=== PATIENT | female | born 1975 | race Caucasian/White ===

== ENCOUNTER 2024-01-26 22:58 | Emergency (ER) | payer BC, SELFPAY ==
[2024-01-26 23:06] VITALS: BP 141/105; PULSE 124; RESP 16; TEMP 36.9; O2SAT 96; BMI 43.9
[2024-01-26 23:16] VITALS: BP 141/105; PULSE 124; RESP 16; TEMP 36.9; O2SAT 96
--- NOTE | 2024-01-26 23:20 | CRLHL7_ITS ---
For Patients: As a result of the Century Cures Act, medical imaging exams and procedure reports are released immediately into your electronic medical record. You may view this report before your referring provider. If you have questions, please contact your health care provider. INDICATION: Fever, recent left breast implant removal with drain in place (01/18/2024). TECHNIQUE: CT chest was acquired with 75 cc Omnipaque 350 IV contrast. COMPARISON: None. FINDINGS: Lungs and pleura: No suspicious nodules or infiltrates. Very mild subpleural reticulation along the anterior left upper lobe. No pleural effusions, pleural thickening, or pneumothorax. The central airways are clear. Heart and vasculature: Heart size is normal. Thoracic aorta and pulmonary artery are normal in caliber. Lymph nodes/mediastinum: No mediastinal, hilar, or axillary adenopathy. Chest wall: Inflammatory stranding and architectural distortion of the left breast with a surgical drain in the operative bed. No focal fluid collection identified. Upper abdomen: No acute or significant findings. Bones: Unremarkable for age. IMPRESSION: 1. Inflammatory stranding and architectural distortion of the left breast with a surgical drain in the operative bed. The inflammatory stranding is likely postoperative change; however, cellulitis cannot be entirely excluded on this exam. No evidence for an abscess. Please note that all CT scans at this facility use dose modulation, iterative reconstruction, and/or weight-based dosing when appropriate to reduce radiation dose to as low as reasonably achievable. Dictated by Omi Donaldson MD @ 01/27/2024 12:56:09 AM (Electronically Signed)
--- NOTE | 2024-01-26 23:28 | ED.FEVER ---
HPI - Fever General Date Seen: 01/26/24 <Les Carrington DO - Last Filed: 01/26/24 23:50> Chief Complaint: Fever <Les Carrington DO - Last Filed: 01/26/24 23:50> Stated Complaint: fever <Les Carrington DO - Last Filed: 01/26/24 23:50> Time Seen by Provider: 01/26/24 23:20 <Les Carrington DO - Last Filed: 01/26/24 23:50> Source: patient <Les Carrington DO - Last Filed: 01/26/24 23:50> Mode of arrival: ambulatory <Les Carrington DO - Last Filed: 01/26/24 23:50> Limitations: no limitations <Les Carrington DO - Last Filed: 01/26/24 23:50> History of Present Illness HPI Narrative: Patient is a 48-year-old female with a history of breast cancer who recently finished chemotherapy and just had a breast implant removal due to contractures on 01/18/2024. She presents today for a fever. She states she 1st had a fever 4 days ago and it went away that day. She then had another fever today of 101.4. She then called the triage line recommended she come in for evaluation. She took ibuprofen for the fever. She also took a [place] that she has been prescribed for her left breast pain. She states the left breast has been painful since Tuesday which she states is with the local anesthetic seem to wear off. Pain has been managed with the Sandborn. She does have a drain coming from the left breast that has not had any changes in output. States she checked her temperature because she was feeling intermittent the warm and chilled. She also feels slightly lightheaded and dizzy. It is hard for described exactly with the sensation was but does states it is pretty mild. Has been going on for the past few days. Has not had any diarrhea, constipation, shortness of breath, chest pain, vision changes, weakness, numbness, abdominal pain, dysuria. Denies any other medical problems at this time. Has not noticed any drainage from the surgical sites. <Les Carrington - Last Filed: 01/26/24 23:50> Related Data Home Medications: Home Medications ?Medication ?Instructions ?Recorded ?Confirmed abemaciclib 150 mg tablet 150 mg PO BID 01/26/24 01/26/24 (Verzenio) anastrozole 1 mg tablet 1 mg PO DAILY 01/26/24 01/26/24 gabapentin 300 mg capsule 900 mg PO QHS 01/26/24 01/26/24 melatonin 10 mg capsule 10 mg PO HS PRN 01/26/24 01/26/24 metformin 500 mg tablet,extended 500 mg PO DAILY 01/26/24 01/26/24 release 24 hr montelukast 10 mg tablet 10 mg PO DAILY 01/26/24 01/26/24 omeprazole 20 mg capsule,delayed 20 mg PO DAILY 01/26/24 01/26/24 release semaglutide 1 mg/dose (4 mg/3 mL) 1 mg subcut QWEEK 01/26/24 01/26/24 subcutaneous pen injector (Ozempic) <Les Carrington DO - Last Filed: 01/26/24 23:50> Allergies/Adverse Reactions: Allergies Allergy/AdvReac Type Severity Reaction Status Date / Time cantaloupe AdvReac Intermediate hives Verified 01/26/24 23:10 codeine AdvReac itching Verified 01/26/24 23:10 <Les Carrington DO - Last Filed: 01/26/24 23:50> Review of Systems Status of ROS Reports: 10 or more systems reviewed and unremarkable except as noted in History and below <Les Carrington DO - Last Filed: 01/26/24 23:50> [facility] Medical History: Medical History (Updated 01/27/24 @ 00:01 by Mainor [place]) Insomnia ?G47.00 - Insomnia, unspecified (ICD-10) Breast cancer ?C50.919 - Malignant neoplasm of unspecified site of unspecified female breast (ICD-10) <Les Carrington DO - Last Filed: 01/26/24 23:50> Surgical History: Surgical History (Updated 01/26/24 @ 23:16 by Patricia Arzate RN) H/O mastectomy ?Z90.10 - Acquired absence of unspecified breast and nipple (ICD-10) <Les Carrington DO - Last Filed: 01/26/24 23:50> Social History: Social History Smoking Status: Never smoker How often do you have a drink containing alcohol: never AUDIT-C Alcohol total score: 0 Non-prescribed substance use: denies use <Les Carrington DO - Last Filed: 01/26/24 23:50> Exam Narrative Exam Narrative: Const: Well-nourished, Well-developed, in mild distress Eyes: PERRL, no conjunctival injection, and symmetrical lids HENT: Atraumatic external nose and ears. Moist mucous membranes. Neck: Symmetric, trachea midline, No thyromegaly. CVS: RRR, No murmurs or gallops. Peripheral pulses 2+ and equal in all extremities RESP: Unlabored respiratory effort. Clear to auscultation bilaterally. GI: Nontender/Nondistended, No rebound or guarding. MSK:Extremities w/o deformity, Normal Active ROM Skin: Warm, Dry. Left breast shows contractures and well-healing surgical sites. Overall the left breast is generally to warmer compared to the right. MARIANA drain intact. No drainage noted from surgical site Neuro: Normal Muscle tone, No focal neurological deficits. Psych: Awake, Alert, & Oriented x3. Appropriate mood and affect. <Les Carrington DO - Last Filed: 01/26/24 23:50> Const Vital Signs, click to edit/add: Vital Signs - 24 hr 01/26/24 23:06 01/26/24 23:16 Temperature 98.5 F 98.5 F Pulse Rate [Pulse Oximeter] 124 H 124 H Respiratory Rate 16 16 Blood Pressure [Left Arm] 141/105 H Blood Pressure [Right Upper Arm] 141/105 H Pulse Oximetry 96 96 Oxygen Delivery Method Room Air Room Air <Les Carrington DO - Last Filed: 01/26/24 23:50> Vital Signs - 24 hr 01/26/24 23:06 01/26/24 23:16 Temperature 98.5 F 98.5 F Pulse Rate [Pulse Oximeter] 124 H 124 H Respiratory Rate 16 16 Blood Pressure [Left Arm] 141/105 H Blood Pressure [Right Upper Arm] 141/105 H Pulse Oximetry 96 96 Oxygen Delivery Method Room Air Room Air <Alban Rodriguez MD - Last Filed: 01/27/24 01:03> Course Vital Signs Vital signs: Initial Vital Signs Temperature 98.5 F 10/17/24 23:06 Temperature Source Oral 01/26/24 23:06 Pulse Rate 124 H 01/26/24 23:06 Respiratory Rate 16 01/26/24 23:06 Blood Pressure 141/105 H 01/26/24 23:06 Blood Pressure Mean 117 H 01/26/24 23:06 Blood Pressure Position Sitting 01/26/24 23:06 Pulse Oximetry 96 01/26/24 23:06 Oxygen Delivery Method Room Air 01/26/24 23:06 Vital Signs Temperature 98.5 F 01/26/24 23:06 Pulse Rate 124 H 01/26/24 23:06 Respiratory Rate 16 01/26/24 23:06 Blood Pressure 141/105 H 01/26/24 23:06 Pulse Oximetry 96 01/26/24 23:06 Oxygen Delivery Method Room Air 01/26/24 23:06 Temperature 98.5 F 01/26/24 23:16 Pulse Rate 124 H 01/26/24 23:16 Respiratory Rate 16 01/26/24 23:16 Blood Pressure 141/105 H 01/26/24 23:16 Pulse Oximetry 96 01/26/24 23:16 Oxygen Delivery Method Room Air 01/26/24 23:16 <Les Carrington, DO - Last Filed: 01/26/24 23:50> Initial Vital Signs Temperature 98.5 F 01/26/24 23:06 Temperature Source Oral 01/26/24 23:06 Pulse Rate 124 H 01/26/24 23:06 Respiratory Rate 16 01/26/24 23:06 Blood Pressure 141/105 H 01/26/24 23:06 Blood Pressure Mean 117 H 01/26/24 23:06 Blood Pressure Position Sitting 01/26/24 23:06 Pulse Oximetry 96 01/26/24 23:06 Oxygen Delivery Method Room Air 01/26/24 23:06 Vital Signs Temperature 98.5 F 01/26/24 23:06 Pulse Rate 124 H 01/26/24 23:06 Respiratory Rate 16 01/26/24 23:06 Blood Pressure 141/105 H 01/26/24 23:06 Pulse Oximetry 96 01/26/24 23:06 Oxygen Delivery Method Room Air 01/26/24 23:06 Temperature 98.5 F 01/26/24 23:16 Pulse Rate 124 H 01/26/24 23:16 Respiratory Rate 16 01/26/24 23:16 Blood Pressure 141/105 H 01/26/24 23:16 Pulse Oximetry 96 01/26/24 23:16 Oxygen Delivery Method Room Air 01/26/24 23:16 <Alban Rodriguez MD - Last Filed: 01/27/24 01:03> MDM - Fever MDM Narrative Medical decision making narrative: Patient is a 48-year-old female presenting to the emergency department for a fever. For postsurgical fevers seems unlikely this is a DC considering she is not having any chest pain but I will do a EKG and troponin for better evaluation. Will do urinalysis to look for signs of a UTI. Seems unlikely to be related to a PE concerned she is having no associated shortness of breath and no lower extremity swelling so I am more inclined to order CT scan with IV contrast to evaluate left breast for any signs of deep abscess instead of doing a CTA. This will also look for signs of pneumonia. She is tachycardic here and had a fever at home so the so will order a septic workup including CBC, BMP, lactate. Will also order a COVID/flu/RSV test as she has been recently hospitalized. CBC shows no acute concerning abnormalities. Urinalysis shows no signs of UTI. Lactate within normal limits. Rest of her lab work and CT are pending at the abnormalities shift. <Les Carrington DO - Last Filed: 01/26/24 23:50> Patient is a 48-year-old female presenting to the emergency department for a fever. For postsurgical fevers seems unlikely this is a DC considering she is not having any chest pain but I will do a EKG and troponin for better evaluation. Will do urinalysis to look for signs of a UTI. Seems unlikely to be related to a PE concerned she is having no associated shortness of breath and no lower extremity swelling so I am more inclined to order CT scan with IV contrast to evaluate left breast for any signs of deep abscess instead of doing a CTA. This will also look for signs of pneumonia. She is tachycardic here and had a fever at home so the so will order a septic workup including CBC, BMP, lactate. Will also order a COVID/flu/RSV test as she has been recently hospitalized. CBC shows no acute concerning abnormalities. Urinalysis shows no signs of UTI. Lactate within normal limits. Rest of her lab work and CT are pending at the abnormalities shift. CT shows only postoperative changes. I did review her case thoroughly and collected a set of blood cultures as a precaution. This time will let her go home symptomatic treatment as her temperature and pulse have normalized. I do not believe further antibiotics or further inpatient workup would be beneficial <Alban Rodriguez MD - Last Filed: 01/27/24 01:03> Lab Data Labs: Lab Results 01/26/24 01/26/24 01/26/24 Range/Units 23:22 23:28 23:30 WBC 6.40 (4.50-11.00) K/uL RBC 3.82 L (4.00-5.20) m/uL Hgb 12.6 (12.0-16.0) gm/dL Hct 38.0 (33.0-51.0) % MCV 100 (80-100) fL MCH 33 (26-34) pg MCHC 33 (32-36) gm/dL RDW Coeff of Velasquez 12.8 (11.5-15.5) % Plt Count 175 (140-440) K/uL Neut % (Auto) 75.0 H (42.0-72.0) % Lymph % (Auto) 18.4 L (20-44) % Banner % (Auto) 4.4 (0.0-11.0) % Eos % (Auto) 1.1 (0.0-7.0) % Baso % (Auto) 0.3 (0.0-3.0) % Neut # (Auto) 4.80 (1.7-7.0) K/uL Lymph # (Auto) 1.20 (0.90-2.90) K/uL Banner # (Auto) 0.30 (0.00-0.90) K/UL Eos # (Auto) 0.07 (0.00-0.50) K/uL Baso # (Auto) 0.02 (0.00-0.30) K/uL Abs Immat Gran (auto) 0.05 (0.00-0.30) K/uL Imm/Tot Granulo (auto) 0.8 % Sodium 140 (135-149) mmol/L Potassium 3.8 (3.6-5.1) mmol/L Chloride 100 (96-114) mmol/L Carbon Dioxide 22 (20-32) mmol/L Anion Gap 18 H (7-15) mEq/L BUN 20 (5-24) mg/dL Creatinine 1.1 (0.5-1.5) mg/dL Estimated Creat Clear 53.42 Estimated GFR 62 ml/min Glucose 100 (60-115) mg/dL Lactate 0.9 (0.5-1.9) mmol/L Calcium 9.0 (8.4-10.6) mg/dL Urine Color Yellow (Yellow) Urine Appearance Clear (Clear) Urine pH 6.5 (5.0-8.5) Ur Specific [place] 1.010 (1.000-1.030) Urine Protein Negative (Negative) Urine Glucose (UA) Negative (Negative) Urine Ketones Negative (Negative) Urine Blood Negative (Negative) Urine Nitrite Negative (Negative) Urine Bilirubin Negative (Negative) Urine Urobilinogen 0.2 (0.2-1.0) Ur Leukocyte Esterase Negative (Negative) Urine RBC 0-2 (0-2) Urine WBC 0-2 (0-5) Ur Squamous Epith Cells None (None-Few) Urine Bacteria None (None) SARS-CoV-2 (PCR) Negative SARS-CoV-2 (Negative) Influenza Type A (PCR) Negative PCR FLU A (Negative) Influenza Type B (PCR) Negative PCR FLU B (Negative) RSV (PCR) Negative PCR RSV (Negative) POC Creatinine 0.9 (0.6-1.3) mg/dl POC Troponin I 0.01 (0.01-0.04) ng/ml <Les Carrington, DO - Last Filed: 01/26/24 23:50> Lab Results 01/26/24 01/26/24 01/26/24 Range/Units 23:22 23:28 23:30 WBC 6.40 (4.50-11.00) K/uL RBC 3.82 L (4.00-5.20) m/uL Hgb 12.6 (12.0-16.0) gm/dL Hct 38.0 (33.0-51.0) % MCV 100 (80-100) fL MCH 33 (26-34) pg MCHC 33 (32-36) gm/dL RDW Coeff of Velasquez 12.8 (11.5-15.5) % Plt Count 175 (140-440) K/uL Neut % (Auto) 75.0 H (42.0-72.0) % Lymph % (Auto) 18.4 L (20-44) % Banner % (Auto) 4.4 (0.0-11.0) % Eos % (Auto) 1.1 (0.0-7.0) % Baso % (Auto) 0.3 (0.0-3.0) % Neut # (Auto) 4.80 (1.7-7.0) K/uL Lymph # (Auto) 1.20 (0.90-2.90) K/uL Banner # (Auto) 0.30 (0.00-0.90) K/UL Eos # (Auto) 0.07 (0.00-0.50) K/uL Baso # (Auto) 0.02 (0.00-0.30) K/uL Abs Immat Gran (auto) 0.05 (0.00-0.30) K/uL Imm/Tot Granulo (auto) 0.8 % Sodium 140 (135-149) mmol/L Potassium 3.8 (3.6-5.1) mmol/L Chloride 100 (96-114) mmol/L Carbon Dioxide 22 (20-32) mmol/L Anion Gap 18 H (7-15) mEq/L BUN 20 (5-24) mg/dL Creatinine 1.1 (0.5-1.5) mg/dL Estimated Creat Clear 53.42 Estimated GFR 62 ml/min Glucose 100 (60-115) mg/dL Lactate 0.9 (0.5-1.9) mmol/L Calcium 9.0 (8.4-10.6) mg/dL Urine Color Yellow (Yellow) Urine Appearance Clear (Clear) Urine pH 6.5 (5.0-8.5) Ur Specific [place] 1.010 (1.000-1.030) Urine Protein Negative (Negative) Urine Glucose (UA) Negative (Negative) Urine Ketones Negative (Negative) Urine Blood Negative (Negative) Urine Nitrite Negative (Negative) Urine Bilirubin Negative (Negative) Urine Urobilinogen 0.2 (0.2-1.0) Ur Leukocyte Esterase Negative (Negative) Urine RBC 0-2 (0-2) Urine WBC 0-2 (0-5) Ur Squamous Epith Cells None (None-Few) Urine Bacteria None (None) SARS-CoV-2 (PCR) Negative SARS-CoV-2 (Negative) Influenza Type A (PCR) Negative PCR FLU A (Negative) Influenza Type B (PCR) Negative PCR FLU B (Negative) RSV (PCR) Negative PCR RSV (Negative) POC Creatinine 0.9 (0.6-1.3) mg/dl POC Troponin I 0.01 (0.01-0.04) ng/ml <Alban Rodriguez MD - Last Filed: 01/27/24 01:03> ECG Data Attestation: I personally reviewed and interpreted this ECG as follows: <Les Carrington DO - Last Filed: 01/26/24 23:50> Prior ECG tracings: not available for review <Les Carrington DO - Last Filed: 01/26/24 23:50> Interpretation: Normal sinus rhythm with a rate 96 beats per minute, normal intervals, normal axis, no ST or T-wave abnormalities. <Les Carrington DO - Last Filed: 01/26/24 23:50> Discharge Plan Discharge Clinical Impression: Fever postop <Les Carrington DO - Last Filed: 01/26/24 23:50> Patient Disposition: Home, Self-Care <Les Carrington DO - Last Filed: 01/26/24 23:50> Condition: Stable <Les Carrington DO - Last Filed: 01/26/24 23:50> Instructions: Fever in Adults (ED) <Les Carrington DO - Last Filed: 01/26/24 23:50> Additional Instructions: Continue take Tylenol ibuprofen for her fevers. If they persist follow-up with your surgeon. Return to emergency department for new or worsening symptom <Les Carrington DO - Last Filed: 01/26/24 23:50> Activity Level: No Restrictions <Les Carrington DO - Last Filed: 01/26/24 23:50> No Restrictions <Alban Rodriguez MD - Last Filed: 01/27/24 01:03> Discharge Diet: Regular <Les Carrington DO - Last Filed: 01/26/24 23:50> Regular <Alban Rodriguez MD - Last Filed: 01/27/24 01:03> Prescriptions: No Action anastrozole 1 mg tablet 1 mg PO DAILY gabapentin 300 mg capsule 900 mg PO QHS melatonin 10 mg capsule 10 mg PO HS PRN metformin 500 mg tablet extended release 24 hr 500 mg PO DAILY montelukast 10 mg tablet 10 mg PO DAILY omeprazole 20 mg capsule,delayed release(DR/EC) 20 mg PO DAILY Ozempic 1 mg/dose (4 mg/3 mL) pen injector 1 mg subcut QWEEK Verzenio 150 mg tablet 150 mg PO BID <Les Carrington DO - Last Filed: 01/26/24 23:50> [facility] <Les Carrington DO - Last Filed: 01/26/24 23:50>
[2024-01-26 23:37] LABS: Creatinine, Point-of-Care* 0.9 mg/dl (0.6-1.3)
[2024-01-26 23:39] LABS: Lactate Sepsis w/Reflex* 0.9 mmol/L (0.5-1.9)
[2024-01-26 23:44] LABS: Basophils Absolute Auto 0.02 K/uL (0.00-0.30); Basophils Percent Auto 0.3 % (0.0-3.0); Eosinophils Absolute Auto 0.07 K/uL (0.00-0.50); Eosinophils Percent Auto 1.1 % (0.0-7.0); Hemoglobin* 12.6 gm/dL (12.0-16.0); Immature Granulocytes Abs Auto 0.05 K/uL (0.00-0.30); Immature Granulocytes Pct Auto 0.8 %; Lymphocytes Percent Auto 18.4 % (20-44); Mean Corpuscular HGB Conc 33 gm/dL (32-36); Mean Corpuscular Hemoglobin 33 pg (26-34); Mean Corpuscular Volume 100 fL (80-100); Monocytes Percent Auto 4.4 % (0.0-11.0); Platelet Count* 175 K/uL (140-440); RDW Coefficient of Variation % 12.8 % (11.5-15.5); Red Blood Count 3.82 m/uL (4.00-5.20)
[2024-01-26 23:46] LABS: Slide Review Reflex No
[2024-01-26 23:47] LABS: Appearance Urine Clear (Clear); Bilirubin Urine Negative (Negative); Blood Urine Negative (Negative); Color Urine Yellow (Yellow); Glucose Urine Negative (Negative); Ketones Urine Negative (Negative); Leukocyte Esterase Urine Negative (Negative); Nitrite Urine Negative (Negative); Protein Urine Negative (Negative); Urobilinogen Urine 0.2 (0.2-1.0); pH Urine 6.5 (5.0-8.5)
[2024-01-26 23:48] LABS: RBC Urine 0-2 (0-2); WBC Urine 0-2 (0-5)
[2024-01-26 23:54] LABS: Troponin, Point-of-Care* 0.01 ng/ml (0.01-0.04)
[2024-01-27 00:06] LABS: PCR FLU A Negative PCR FLU A (Negative); PCR FLU B Negative PCR FLU B (Negative); PCR RSV Negative PCR RSV (Negative); SARS PCR* Negative SARS-CoV-2 (Negative)
--- OUTSIDE RECORDS SUMMARY | 2024-01-27 00:14 | XMS_ITS | Encounter Summary ---
Author Organization [employer] Address [address] [place] [address] Care Team Providers Care Research Program Assistant Name Role Phone Danna Borja PA-C Primary Care Provider [phone] Encounter Details Date Type Department Care Team (Late st Contact Info) Description 01/23/2024 4:00 PM CDT Office Visit [facility] [address], [address] [place], [place] [id number] Ruby Holland, KRISTAL, PROVIDER ENROLLMENT SPECIALIST [address] [place] [address] Follow-up examination following surgery (Primary Dx) Social History Tobacco Use Types Packs/Day Years Used Date Smoking Tobacco: Former Cigarettes Q uit: 04/11/2018 Smokeless Tobacco: Never Alcohol Use Standard Drinks/Week Comments Not Currently 0 (1 standard drink = 0.6 oz pur e alcohol) Sex and Gender Information Value Date Recorded Sex Assigned at Not on file Gender Identity Not on file Sexual Orientation Not on file documented as of this encounter Patient Instructions * Patient Instructions* Ruby Holland APRN, PROVIDER ENROLLMENT SPECIALIST - 01/23/2024 4:00 PM CDT Instructions: -No lifting/ pushing/ pulling >8lbs, no reaching or lifting overhead x4 weeks post-op with left arm -Continue compression at all times x 4 weeks post-op -Ok to shower, no submerging (baths/ pools) until well healed -Ibuprofen 400mg to 600mg every 8 hours as needed or Tylenol 500mg to 650mg every 6 hours as needed -Leave clear tape over incisions until 2-3 weeks post-op. Once removed, ok to start gentle lotion (Vanicream, Eucerin, CeraVe), Aquaphor, or vitamin E to scars. At 4-6 weeks post-op, you may start using silicone tape or gel daily -Monitor for swelling, redness, pain, fevers documented in this encounter Progress Notes * Ruby Holland APRN, CNP - 01/23/2024 4:00 PM CDT Plastic Surgery Clinic Assessment/ Plan: The patient is a 48 y.o. old female with a PMH of left breast cancer who previously underwent left mastectomy and implant-based reconstruction. She developed capsular contracture ofleft breast and is now s/p removal of implant with capsulectomy by Dr. Mitchell 01/18/2024. She is healing appropriately without complication, drain remains. -No lifting/ pushing/ pulling >8lbs, no reaching or lifting overhead x4 weeks post-op with left arm -Continue compression at all times x 4 weeks post-op Follow-up: ?? Return to clinic: 2-3 weeks, call when drain meets criteria Ruby Holland APRN-KAROL HPI: The patient is a 48 y.o. old female with significant PMH of left breast cancer who previously underwent left mastectomy by Dr. Lyons and immediate reconstruction with tissue grinding room inspector by Dr. Mitchell 05/19/2021. She completed xrt to left in 01/2022. She underwent right breast reduction andleft stage 2, placement of implant, and fat grafting by Dr. Mitchell 07/21/2022. She developed capsular contracture of left breast and is now s/p removal of implant with capsulectomy by Dr. Mitchell 01/18/2024. She noted relief of left breast discomfort. Left breast implant: [id number] Left drain: 25+cc/24h x2d ROS: Review of Systems CONSTITUTIONAL: Negative SKIN: No rash/ drainage Physical Exam: Gen: WDWN female in NAD. Awake and cooperative Resp: effort nl Breast: Right surgically reduced [place] breast. Left breast surgically absent, skin with radiation changes. Incision covered with prineo, CDI. No erythema or fluid wave. Drain with serosanguinous output documented in this encounter Plan of Treatment Not on file documented as of this encounter Visit Diagnoses Diagnosis Follow-up examination following surgery- Primary Follow-up examination, following unspecified surgery documented in this encounter Care Teams Research Program Assistant Relationship Specialty Start Date End Date Danna Borja PA-C [address] [place] [address] PCP - General Physician Ambulance Attendant 01/18/24 documented as of this encounter
--- OUTSIDE RECORDS SUMMARY | 2024-01-27 00:14 | XMS_ITS | Encounter Summary ---
Author Organization [facility] Address [address] [place] [address] Care Team Providers Care Eddy Current Inspector Name Role Phone Danna Borja PA-C Primary Care Provider [phone] Reason for Visit * Auth/Cert Specialty Diagnoses / Procedures Referred By Alonso t Referred To Contact Diagnoses Personal history of malignant neoplasm of breast Procedures removal of left breast implant - NOT REPLACING Referral ID Status Reason Start Date Expiration Date Visits Re quested Visits Authorized [id number] 1 1 Encounter Details Date Type Department Care Team (Late st Contact Info) Description 01/18/2024 9:21 AM CDT Anesthesia Event [facility] [address] [place] [address] [phone] Courtney Mock MD [address] [place] [address] [phone] Frida Jacques Anesthesia Record Procedure Summary Procedure Name Responsible Anesthesiologist Anesthesia Start Time Anesthesia Stop Time removal of left breast implant - NOT REPLACING (Left: Breast) Courtney Mock MD 01/18/24 0921 01/18/24 1029 Events Date Time Event Comment 01/18/2024 0902 0921 An Start 0921 An Start Data 0931 MD/DO Present 0931 An Induction 0935 An Intubation 1022 An Emergence 1024 An Extubation Purposeful mov ement with spontaneous respirations and adequate air exchange. Suctioned and ETT removed. Transferred with oxygen to recovery. 1024 Nasal Canula/O2 Mask 1027 an stop data 1029 Care Handoff Note I discusse d with the receiving nurse and we: 1) Identified the patient, medina family member(s) or patient surrogate 2) Identified the responsible practitioner 3) Reviewed the pertinent medical history 4) Discussed the surgical/procedure course 5) Reviewed intra-op anesthesia management and issues during anesthesia 6) Set expectations for the post-procedure period 7) Allowed opportunity for questions and acknowledgement of understanding of report Electronically signed by Emma Lynn APRN, QUALITY CONTROL LEAD 1029 An Stop Care transferre d. Meds Name Total propofol 10 mg/mL for procedural sedatio n (aka diPRIvan) 240 mg propofol 1000 mg (aka diPRIvan) injectio n 429.4 mg dexmedeTOMIDine (PRECEDEX) 2 00 mcg in sodium chloride 50 mL (4 mcg/mL) premade infusion 8 mcg midazolam 2 mg/2 mL injection (aka VERSE D) 2 mg fentaNYL injection (aka SUBLIMAZE) 2 mL lidocaine 2% PF injection aka (XYLOCAINE ) 70 mg succinylcholine injection (aka QUELICIN) 120 mg ondansetron injection (aka ZOFRAN) 4 mg dexamethasone 4 mg/mL injection (aka DEC ADRON) 4 mg HYDROmorphone 1 mg/mL injection (aka DIL AUDID) 0.5 mg ceFAZolin-SWFI 2 g/20 mL IV syringe 2 g lactated ringers infusion 500 mL * Agents Name O2 N2O Air * Blood No blood administrations on file. Lines, Drains, and Airways Type Details Placement Removal Drain 01/18/24; 1; Left; Breast; MARIANA/Bulb; Yes; 15 Fr.; New 01/18/24 0000 by Helena Hope RN Incision/Surgical Site 01/18/24; 0948; # 1; Breast; Left 01/18/24 0948 by Helena Hope, MEGAN Peripheral IV Placement Date: 01/18/24; Placement Time: 854; Pre-existing: No; Inserted by?: RN; Size (Gauge): 20 G; Orientation: Right; Site Prep: ChloraPrep; Local Anesthetic: None; Insertion attempts: 1; Blood draw with insertion?: yes; Patient Tolerance: Tolerated well; Removal Date: 01/19/24; Removal Time: 07; Removal Reason: No longer needed; Catheter Tip: Intact 01/18/24 0855 by Coirn Walsh RN 01/19/24 0738 by Lorna Vargas RN ETT Placement Date: 01/18/24; Placement Time: 0935; Placed By: SHAWNEE; Induction Type: Pre-O2, IV, RSI; Masking: Easy; ETT Type: ETT; Orientation: Right; Size (mm): 7.0; Depth Secured (cm): 22 cm; Cuffed: Cuffed; Intubation Method: DL; Cormack_Lehane Glottic Grade: Grade 1; Glottic View: Cords Open, Cords Clear; Blade: MAC; Blade Size: 3; Insertion attempts: 1; Difficulty: Easy; Adjunct Equipment: Stylet; Placement Verification: auscultation, BBSE, Positive EtCO2; Teeth and Lips Unchanged: Unchanged; Emergence: Adequate air exchange, Spontaneous respirations; Suctioned: Oropharnyx; Removal Date: 01/18/24; Removal Time: 1024; Extubation By: SHAWNEE; Transferred with Oxygen: Yes 01/18/24 0935 by Frida Jacques 01/18/24 1024 by Frida Jacques documented in this encounter Social History Tobacco Use Types Packs/Day Years [...] on file documented as of this encounter Miscellaneous Notes * Anesthesia Postprocedure Evaluation - Courtney Mock MD - 01/18/2024 12:24 PM CDT [facility] Anesthesia Post-op Note Patient: Katalina Tucker Post-Op Diagnosis: Pre-Op Diagnosis Codes: * Personal history of malignant neoplasm of breast [Z85.3] Procedure Performed: Procedure(s): Left - removal of left breast implant - NOT REPLACING - Wound Class: 1 CLEAN Anesthesia Type: General Post-op vital signs: Vitals Value Taken Time BP 126/82 01/18/24 1200 Temp 96.9 ??F (36.1 ??C) 01/18/24 1200 Pulse 77 01/18/24 1206 Resp 10 01/18/24 1205 SpO2 100 % 01/18/24 1206 Vitals shown include unfiled device data. Pain Score: Preferred Pain Scale: number (Numeric Rating Pain Scale) (0-10) Pain Rating: Rest: 4 (0-10) Pain Rating: Activity: 6 Post-op assessment: Patient location: PACU Airway Status: Patent Cardiovascular function: Satisfactory Hydration status: Satisfactory PONV: None Level of Consciousness: Awake Fully Participates Postop Assessment: Patient tolerated procedure well. Electronically signed by: Courtney Hurt MD 01/18/2024 12:24 PM * Anesthesia Preprocedure Evaluation - Courtney Mock MD - 01/18/2024 8:28 AM CDT [facility] Anesthesia Pre-op Evaluation Procedure: removal of left breast implant - NOT REPLACING, Left HPI: 48 y.o. old female. Pre-Op Diagnosis Codes: * Personal history of malignant neoplasm of breast [Z85.3] Allergies Allergen Reactions Codeine Itching Any medication containing codeine causes patient to itch History reviewed. No pertinent past medical history. 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 No pertinent surgical history. Outpatient Medications as of 01/18/2024 Medication Sig anastrozole (ARIMIDEX) 1 MG tablet Take 1 Tablet (1 mg) by mouth daily. gabapentin (NEURONTIN) 300 MG capsule Take 3 Capsules (900 mg) by mouth daily at bedtime. metFORMIN XR (GLUCOPHAGE XR) 500 MG 24 hour release tablet Take 1 Tablet (500 mg) by mouth every evening with a meal. montelukast (SINGULAIR) 10 MG tablet TAKE 1 TABLET(10 MG) BY MOUTH EVERY EVENING omeprazole (PRILOSEC) 20 MG capsule Take 1 Capsule (20 mg) by mouth. VERZENIO 150 MG TABS Take by mouth two times a day. Facility-Administered Medications as of 01/18/2024 Medication Dose Route Frequency dimenhyDRINATE (DRAMAMINE) tablet 50 mg 50 mg Oral ONCE PRN fentaNYL (SUBLIMAZE) injection 50-100 mcg 50-100 mcg Intravenous Q15MIN PRN lactated ringers infusion 1,000 mL Intravenous Continuous lidocaine PF (XYLOCAINE) 1 % injection 0.1-1 mL 0.1-1 mL Injection ONCE PRN midazolam (VERSED) injection 1 mg 1 mg Intravenous Q5MIN PRN sodium chloride 0.9% injection 3 mL 3 mL Intravenous PRN with procedures Labs: Lab Results Component Value Date/Time CREATININE 0.85 05/13/2022 03:23 PM No results found for: WBC, HGB, HCT, PLTS No results found for: INR Blood Bank: No results found for: ABO, ABSCR EKG: No results found for this or any previous visit. Physical Exam: BP (!) 135/99 Pulse 81 Temp (!) 96.6 ??F (35.9 ??C) (Temporal Artery) SpO2 98% Assessment/Plan: Review of Systems Patient has GERD. GERD controlled with medication (Ozempic held). Patient is not a current smoker. Patient is a former smoker. The patient denies alcohol use. Patient denies any recent URI. History of PONV: Yes. History of motion sickness: No. Patient reports a personal or family history of anesthesia complications. History of prolonged emergence. NPO Status: Other (See comment) (water 0730 OK for 930 as scheduled). Exam Mental Status: Alert and oriented. Mallampati score: II (Two). Mouth opening: Normal Thyromental Distance: > 3 finger breadths and Normal Neck Extension: Full Neck Circumference > 40 cm?: Yes Previous airway assessment: Previously EASY intubation.,. Current airway assessment:Normal Dentition: Caps/crowns. Cardiac Exam: Regular rate and rhythm. Respiratory Exam: Breath sounds clear to auscultation Assessment ASA Status: 3 . Plan Anesthesia type: General, RSI and ETT Induction: Propofol Maintenance: TIVA Postoperative pain management: Plan for postoperative opioid use PONV Risk Score Adult: 4 PONV Prophylaxis (planned): Decadron, Ondansetron and Scopolamine Patch Anesthetic plan, risks, benefits and alternatives discussed with the patient who agrees to the anesthesia treatment plan. The patient and/or their event marketing representative were notified about the potential risks of damage to the lips, teeth, dental devices, mouth and airway. H&P Reviewed and Patient examined, no change observed IV access Antibiotics per surgery Electronically signed by: Courtney Hurt MD 01/18/2024 8:28 AM documented in this encounter Plan of Treatment Not on file documented as of this encounter Visit Diagnoses Not on filedocumented in this encounter Administered Medications Inactive Administered Medications - up to 3 most recent administrations Medication Order MAR Action Action Date Dose Rate Site ceFAZolin (ANCEF) syringe Intravenous, Starting on Tue01/18/24 at 0936 Given 01/18/2024 9:36 AM CDT 2 g dexAMETHasone (DECADRON) injection Intravenous, Starting on Tue01/18/24 at 0931, Until Tue01/18/24 at 1029 Given 01/18/2024 9:31 AM CDT 4 mg dexmedeTOMIDine (PRECEDEX) 200 mcg in sodium chloride 50 mL (4 mcg/mL) premade infusion Intravenous, Starting on Tue01/18/24 at 0938, Until Tue01/18/24 at 1029 Given 01/18/2024 9:38 AM CDT 8 mcg fentaNYL (SUBLIMAZE) injection Intravenous, Starting on Tue01/18/24 at 0931, Until Tue01/18/24 at 1029 Given 01/18/2024 9:31 AM CDT 2 mL HYDROmorphone (DILAUDID) injection Intravenous, Starting on Tue01/18/24 at 0931, Until Tue01/18/24 at 1029 Given 01/18/2024 9:31 AM CDT 0.5 mg lactated ringers infusion 1,000 mL, Intravenous, at 25 mL/hr, CONTINUOUS, Starting on Tue01/18/24 at 0815, To be used preop UNLESS patient has renal failure, then use NaCl 0.9% IV., Pre-op Started 01/18/2024 9:21 AM CDT lidocaine PF (XYLOCAINE) 2 % injection Intravenous, Starting on Tue01/18/24 at 0931, Until Tue01/18/24 at 1029 Given 01/18/2024 9:31 AM CDT 70 mg midazolam (VERSED) injection Intravenous, Starting on Tue01/18/24 at 0924, Until Tue01/18/24 at 1029 Given 01/18/2024 9:24 AM CDT 2 mg ondansetron (ZOFRAN) injection Intravenous, Starting on Tue01/18/24 at 0921, Until Tue01/18/24 at 102 Given 01/18/2024 9:21 AM CDT 4 mg propofol (DIPRIVAN) 10 mg/mL injection Intravenous, Starting on Tue01/18/24 at 0938, Until Tue01/18/24 at 1029 Rate/Dose Change 01/18/2024 10:18 AM CDT 50 mcg/kg/min 16.41 mL/hr Rate/Dose Change 01/18/2024 10:13 AM CDT 100 mcg/kg/min 32 .82 mL/hr Started 01/18/2024 9:38 AM CDT 200 mcg/kg/min 65.64 mL/ hr propofol (DIPRIVAN) 10 mg/mL injection Intravenous, Starting on Tue01/18/24 at 0938, Until Tue01/18/24 at 1029 Given 01/18/2024 9:38 AM CDT 40 mg Given 01/18/2024 9:31 AM CDT 200 mg succinylcholine (QUELICIN) injection Intravenous, Starting on Tue01/18/24 at 0931, Until Tue01/18/24 at 1029 Given 01/18/2024 9:31 AM CDT 120 mg documented in this encounter Care Teams Eddy Current Inspector Relationship Specialty Start Date End Date Danna Borja PA-C [address] [place] [address] PCP - General Physician Ell Tutor 01/18/24 documented as of this encounter
--- OUTSIDE RECORDS SUMMARY | 2024-01-27 00:14 | XMS_ITS | Clinical Summary ---
Author Organization [facility] Address [address] [place] [address] Care Team Providers Care Graduate Rn Name Role Phone Danna Borja PA-C Primary Care Provider [phone] Source Comments You are receiving this document as you are listed as the primary care provider,follow-up provider, or the patient has been referred to you for consultation.This is in compliance with the Medicare andMedicaid EHR Incentive Program,which states Providers who transition their patient to another setting of careor provider of care or refers their patient to another provider of care shouldprovide summary care record for each transition of care or referral. Dishable Allergies Active Allergy Reactions Criticality Noted Date Comments Codeine Itching 03/12/2021 Any medication containing codeine causes patient to itch Other Hives High 01/18/2024 Cantaloupe (fruit) Medications Medication Sig Dispensed Refills Start Date End Date Status anastrozole (ARIMIDEX) 1 MG tablet Take 1 Tablet (1 mg) by mouth daily. 04/19/2022 Active VERZENIO 150 MG TABS Take 1 Tablet (150 mg) by mouth two times a day. 06/27/2022 Active omeprazole (PRILOSEC) 20 MG capsule Take 1 Capsule (20 mg) by mouth. 07/14/2022 Active montelukast (SINGULAIR) 10 MG tablet TAKE 1 TABLET(10 MG) BY MOUTH EVERY EVENING 90 Tablet 3 09/30/2023 Active gabapentin (NEURONTIN) 300 MG capsule Take 3 Capsules (900 mg) by mouth daily at bedtime. 10/31/2023 Active metFORMIN XR (GLUCOPHAGE XR) 500 MG 24 hour release tablet Take 1 Tablet (500 mg) by mouth every evening with a meal. 10/19/2023 Active HYDROcodone-silvana taminophen (NORCO) 5-325 MG tablet Take 1 Tablet by mouth every 6 hours as needed for Pain (severe pain). 10 Tablet 01/18/2024 Active semaglutide (OZEMPIC, 1 MG/DOSE,) 4 MG/3ML injection Inject 1 mg subcutaneously once every week. Active Melatonin 10 MG TABS Take 1 Tablet (10 mg) by mouth daily at bedtime. Active multivitamin with minerals tablet Take 1 Tablet by mouth daily. Active metFORMIN XR (GLUCOPHAGE XR) 500 MG 24 hour release tablet Take 2 Tablets (1,000 mg) by mouth two times a day with meals. 01/10/2021 4 Discontinued (*Med change OR same med OR reorder, new dose/directi ons) insulin glargine (LANTUS SOLOSTAR) 100 UNIT/ML pen Inject 34 Units subcutaneously. 07/14/2022 4 Discontinued (*Med change OR same med OR reorder, new dose/directi ons) oxybutynin (DITROPAN) 5 MG tablet Take 1 Tablet (5 mg) by mouth. 4 Discontinued (*Med change OR same med OR reorder, new dose/directi ons) OZEMPIC, 0.25 OR 0.5 MG/DOSE, 2 MG/3ML injection Inject subcutaneously. 07/28/2022 4 Discontinued (*Med change OR same med OR reorder, new dose/directi ons) semaglutide (OZEMPIC, 0.25/0.5 MG/DOSE,) 2 MG/1.5ML injection 07/23/2022 4 Discontinued (*Med change OR same med OR reorder, new dose/directi ons) Abemaciclib 150 MG TABS Take 1 Tablet (150 mg) by mouth daily. 10/24/2023 4 Discontinued (*Med change OR same med OR reorder, new dose/directi ons) fluconazole (DIFLUCAN) 150 MG tablet Take 1 Tablet (150 mg) by mouth once for 1 dose. 1 Tablet 01/19/2024 4 Active Problems Problem Noted Date Diagnosed Date Secondary and unspecified ma lignant neoplasm of axilla and upper limb lymph nodes 07/14/2022 Personal history of malignant neoplasm of breast 04/13/2022 Overview (04/13/2022): Added automatically from request for surgery [id number] Port or reservoir infection 01/23/2022 Sepsis 01/23/2022 Hot flashes due to menopause 01/13/2022 Radiation dermatitis 01/13/2022 Chemotherapy-induced neutropenia 05/24/2021 ACP (advance care planning) 05/13/2021 Overview (07/16/2022): Patient attended the virtual ACP class on 05/13/2021. Danna Palomares [facility] Advance Care Planning Educator Malignant neoplasm of overla pping sites of left breast in female, estrogen receptor positive 03/30/2021 Breast cancer 03/10/2021 New onset type 2 diabetes mellitus 05/18/2018 Insomnia, unspecified 03/03/2010 Overview (07/16/2022): Noted in office visit from 10/17/2009. Keesha Michael RN............... 03/03/2010 7:55 AM Other acne 05/22/2007 Encounters Date Type Department Care Team Description 01/26/2024 Nurse Triage Care[facility] [address] [place] [address] Unassigned, Provider Post-Op Problem; FEVER 01/25/2024 8:00 AM CDT [facility] [address], [address] [place] [address] Ruby Holland, SMOKE AND FLAME SPECIALIST, ELECTRIC CRANE OPERATOR Chief Comp: Follow-up, NOS 01/23/2024 4:00 PM CDT Office Visit [facility] [address], [address] [place] [address] Ruby Holland, SMOKE AND FLAME SPECIALIST, ELECTRIC CRANE OPERATOR Follow-up examination following surgery (Primary Dx) 01/18/2024 9:21 AM CDT Anesthesia Event [facility] [address] [place] [address] Courtney Mock MD Harris Frida A 01/18/2024 9:15 AM CDT - 01/18/2024 10:30 AM CDT Surgery [facility] [address] [place] [id number] Henrietta Mitchell MD removal of left breast implant - NOT REPLACING 01/18/2024 7:47 AM CDT - 01/19/2024 10:39 AM CDT Hospital Encounter [facility] [address] [address] Henrietta Mitchell MD Personal history of malignant neoplasm of breast Discharge Disposition: Home 01/09/2024 Orders Only HIM DEPARTMENT Provider, MD Kevin 01/02/2024 7:30 PM CDT [facility] [address], [address] [address] Henrietta Mitchell MD Chief Comp: Follow-up, NOS 01/02/2024 2:30 PM CDT Office Visit [facility] [address], [address] [place] [id number] Henrietta Mitchell MD Personal history of malignant neoplasm of breast (Primary Dx) from Last 3 Months Social History Tobacco Use Types Packs/Day Years Used Date Smoking Tobacco: Former Cigarettes Q uit: 04/11/2018 Smokeless Tobacco: Never Alcohol Use Standard Drinks/Week Comments Not Currently 0 (1 standard drink = 0.6 oz pur e alcohol) Sex and Gender Information Value Date Recorded Sex Assigned at Not on file Gender Identity Not on file Sexual Orientation Not on file Last Filed Vital Signs Vital Sign Reading Time Taken Comments Blood Pressure 112/79 01/19/2024 7:49 AM CDT Pulse 56 01/19/2024 7:49 AM CDT Temperature 36.7 ??C (98.1 ??F) 01/19/2024 7:49 AM CD T Respiratory Rate 16 01/19/2024 7:49 AM CDT Oxygen Saturation 97% 01/19/2024 7:49 AM CDT Inhaled Oxygen Concentration - - Weight 118.6 kg (261 lb 8 oz) 01/02/2024 2:42 PM CDT Height 162.6 cm (5' 4) 01/02/2024 2:42 PM CDT Body Mass Index 44.89 01/02/2024 2:42 PM CDT Plan of Treatment Health Maintenance Due Date Last Done Comments Cervical Cancer Screening Due 1974 Colon Cancer Screening Plan Due 1974 Diabetes: Creatinine 1974 Diabetes: Eye Exam 1974 Diabetes: Foot Exam 1974 Diabetes: Lipid Panel 1974 Diabetes: Urine Microalbumin 1974 Hep C Screening (Preventive Services) 1974 HIV Screening (Preventive Services) 1990 Adult Preventive Visit 1992 HepB (1) 1993 DTaP/Tdap/Td (3 - Tdap) 02/27/2018 02/28/2008, 12/09 Mammogram 02/27/2022 02/27/2021 Pneumococcal (2 - PCV) 04/17/2022 04/17/2021 Influenza (#1) 2023 01/25/2023, 02/10, 04/01/2021, Additional history exists COVID-19 Vaccine ( season) 2023 10/19/2023, 01/25/2023, 12/25/2021, Additional history exists Diabetes: HGBA1C 01/19/2024 10/19/2023, 01/2024, 04/01/2023, Additional history exists Zoster/Shingles (1 of 2) 2024 HepA Aged Out 01/20/2010, 05/12, 06/16/2006 No longer eligible based on patient's age to complete this topic Hib Aged Out No longer eligi ble based on patient's age to complete this topic IPV (Polio) Aged Out No longer eligi ble based on patient's age to complete this topic RSV Aged Out No longer eligi ble based on patient's age to complete this topic MCV4 Aged Out No longer eligi ble based on patient's age to complete this topic Medical Devices Implanted Type Area Application Support Technician Device Identifier Shelf Expiration Date Model / Serial / Lot [employer] Breast Implant Smoth Moderate High Profile Xtra Implanted:Qty: 1 on 07/21/2022 by Henrietta Mitchell MD at [facility] DEVICE Left: BREAST [employer] 2027 [id number] / [id number] Procedures Procedure Name Priority Date/Time Associated Diagnosis Comments GLUCOSE, WHOLE BLOOD POCT Routine 01/18/2024 8:47 PM CDT GLUCOSE, WHOLE BLOOD POCT Routine 01/18/2024 4:56 PM CDT GLUCOSE, WHOLE BLOOD POCT Routine 01/18/2024 11:06 AM CDT SURGICAL PATHOLOGY Routine 01/18/2024 10 :09 AM CDT Personal history of malignant neoplasm of breast BILATERAL BREAST RECONSTRUCTION WITH INSERTION IMPLANT 01/18/2024 9:06 AM CDT Personal history of malignant neoplasm of breast GLUCOSE, WHOLE BLOOD POCT Routine 01/18/2024 8:54 AM CDT LABORATORY REPORT 01/09/2024 from Last 3 Months Results * Glucose, Whole Blood POCT (01/18/2024 8:47 PM CDT) Only the most recent of4 resultswithin the time period is included. Glucose, Whole Blood 174 70 - 180 mg/dL 01/18/2024 8:49 PM CDT [facility] Performing Location [id number] 01/18/2024 8:49 PM CDT [facility] Blood 01/18/2024 8:47 PM CDT 01/18/2024 8:49 PM CDT Henrietta Mitchell MD LAB_1 [facility] [address] [place] [address], [facility] * Surgical Path (01/18/2024 10:09 AM CDT) Case Report Surgical Pathology ?Case: [id number] ? Authorizing Provider: ??Henrietta Mitchell MD ?Collected: ? 01/18/2024 1009 ? Ordering Location: ? [facility] Operating Room ?Received: ?01/18/2024 1037 ? Pathologist: ? Whit Dawn MD ? Specimen: ?Breast, left, LEFT BREAST CAPSULE ? 01/20/2024 11:52 AM [facility] FINAL DIAGNOSIS A. Breast, left, excision: Breast tissue with fibrous capsule Negative for atypia or malignancy 01/20/2024 11:52 AM [facility] Clinical Information Personal history of malignant neoplasm of breast 01/20/2024 11:52 AM [facility] Microscopic Description Microscopic examination is performed. 01/20/2024 11:52 AM [facility] Special Stains In block A1 and A2, cytokeratin AE1/AE3 immunostain is negative, CD68 highlights scattered macrophages. The stain controls have been reviewed and stain appropriately. 01/20/2024 11:52 AM [facility] Technical Information A portion of the technical component was performed at [facility], [address] [place] [id number]. The professional interpretation was performed at [facility]. 01/20/2024 11:52 AM [facility] Gross Description A: The specimen is received in formalin and labeled with the patient's name and Breast, left, LEFT BREAST CAPSULE. The specimen consists of a 9 x 7.8 x 2.6 cm pink-cross disrupted and fragmented breast capsule. There is a smooth surface and an opposite roughened surface with a moderate amount of attached fibroadipose tissue. The thickness is 0.2-0.4 cm. No masses are grossly identified. Regional Cra sections are submitted in 2 cassettes. MD 01/20/2024 11:52 AM [facility] Embedded Images 01/20/2024 11:52 AM [facility] Tissue BREAST STRUCTURE / Unknown 01/18/2024 10:09 AM CDT 01/18/2024 10:37 AM T Henrietta Mitchell [place] [address], [facility] * LABORATORY REPORT (01/09/2024) Interface Provider DUMMY/OTHER/AR from Last 3 Months Advance Directives * Full Code (Latest Code Status on File) Date Activated Date Inactivated Comments 01/18/2024 12:32 PM 01/19/2024 12:44 PM * Full Code Date Activated Date Inactivated Comments 07/21/2022 5:44 PM 07/22/2022 12:25 PM * Full Code Date Activated Date Inactivated Comments 02/18/2022 9:03 AM 02/18/2022 11:45 AM Care Teams Graduate Rn Relationship Specialty Start Date End Date Danna Borja PA-C [address] [place] [address] PCP - General Physician Small Animal Veterinarian 01/18/24
--- OUTSIDE RECORDS SUMMARY | 2024-01-27 00:14 | XMS_ITS | Encounter Summary ---
Author Organization [facility] Address [address] [place] [address] Care Team Providers Care Spin Table Operator Name Role Phone Unavailable Primary Care Provider Unavailabl e Reason for Visit * Reason Comments Follow-up, NOS Entered automaticall y based on patient selection in [facility]. Encounter Details Date Type Department Care Team (Late st Contact Info) Description 01/02/2024 7:30 PM CDT [facility] [address], [address] [place], [place] [id number] Henrietta Mitchell MD [address] [place] [id number] Chief Comp: Follow-up, NOS Social History Tobacco Use Types Packs/Day Years [...] on file documented as of this encounter Plan of Treatment Not on file documented as of this encounter Visit Diagnoses Not on filedocumented in this encounter
--- OUTSIDE RECORDS SUMMARY | 2024-01-27 00:14 | XMS_ITS | Encounter Summary ---
Author Organization [facility] Address [address], [place] [address] Care Team Providers Care Phys Therapist Name Role Phone Danna Borja PA-C Primary Care Provider [phone] Reason for Visit * Auth/Cert Specialty Diagnoses / Procedures Referred By Alonso swan Referred To Contact Diagnoses Personal history of malignant neoplasm of breast Procedures removal of left breast implant - NOT REPLACING Referral ID Status Reason Start Date Expiration Date Visits Re quested Visits Authorized [id number] 1 1 Encounter Details Date Type Department Care Team (Latest Contact Info) Description 01/18/2024 7:47 AM CDT - 01/19/2024 10:39 AM CDT Hospital Encounter [facility] [address] [place] [id number] Henrietta Mitchell MD [address] [place] [address] [phone] Personal history of malignant neoplasm of breast Discharge Disposition: Home Social History Tobacco Use Types Packs/Day Years [...] on file documented as of this encounter Last Filed Vital Signs Vital Sign Reading Time Taken Comments Blood Pressure 112/79 01/19/2024 7:49 AM CDT Pulse 56 01/19/2024 7:49 AM CDT Temperature 36.7 ??C (98.1 ??F) 01/19/2024 7:49 AM CD T Respiratory Rate 16 01/19/2024 7:49 AM CDT Oxygen Saturation 97% 01/19/2024 7:49 AM CDT Inhaled Oxygen Concentration - - Weight - - Height - - Body Mass Index - - documented in this encounter Discharge Summaries * Manjeet Jiang PA-C - 01/19/2024 8:02 AM CDT [facility] Discharge Summary Admit date: 01/18/2024 7:47 AM Discharge date: 01/19/2024 Date of Service: 01/19/2024 Service: Plastic Surgery Staff MD:Henrietta Mitchell MD Final diagnoses (primary and secondary): Left Breast cancer Problem that led to hospitalization: Katalina Chance is a 48 y.o. old female who was admitted for post operative observation. Hospital Course Test results: Hospital Encounter on 01/18/24 (from the past 24 hour(s)) Glucose, Whole Blood POCT Result Value Ref Range Glucose, Whole Blood 101 70 - 180 mg/dL Performing Location [facility] Glucose, Whole Blood POCT Result Value Ref Range Glucose, Whole Blood 121 70 - 180 mg/dL Performing Location [facility] Glucose, Whole Blood POCT Result Value Ref Range Glucose, Whole Blood 117 70 - 180 mg/dL Performing Location [facility] Glucose, Whole Blood POCT Result Value Ref Range Glucose, Whole Blood 174 70 - 180 mg/dL Performing Location [facility] Procedures: left breast implant removal Complications: none Brief hospital course by problem: Principal Problem: Personal history of malignant neoplasm of breast Patient seen and examined today. Pertinent discharge exam findings: Nausea improving, taking good PO and ambulating Discharge Information Condition at discharge:good. Discharge destination:home. Medications at discharge: Medication List START taking these medications fluconazole 150 MG tablet Commonly known as: diFLUcan Take 1 Tablet (150 mg) by mouth once for 1 dose. HYDROcodone-acetaminophen 5-325 MG tablet Commonly known as: NORCO Take 1 Tablet by mouth every 6 hours as needed for Pain (severe pain). CONTINUE taking these medications anastrozole 1 MG tablet Commonly known as: ARIMIDEX Take 1 Tablet (1 mg) by mouth daily. gabapentin 300 MG capsule Commonly known as: NEURONTIN Take 3 Capsules (900 mg) by mouth daily at bedtime. Melatonin 10 MG Tabs Take 1 Tablet (10 mg) by mouth daily at bedtime. metFORMIN XR 500 MG 24 hour release tablet Commonly known as: GLUCOPHAGE XR Take 1 Tablet (500 mg) by mouth every evening with a meal. montelukast 10 MG tablet Commonly known as: SINGULAIR TAKE 1 TABLET(10 MG) BY MOUTH EVERY EVENING multivitamin with minerals tablet Take 1 Tablet by mouth daily. omeprazole 20 MG capsule Commonly known as: PriLOSEC Take 1 Capsule (20 mg) by mouth. Ozempic (1 MG/DOSE) 4 MG/3ML injection Generic drug: semaglutide Inject 1 mg subcutaneously once every week. Verzenio 150 MG Tabs Generic drug: Abemaciclib Take 1 Tablet (150 mg) by mouth two times a day. Code Status: Full Code. Name and 24 hour phone number of discharging physician: NAME:, PHONE NUMBER Manjeet Dyer. KHUSHBOO [facility] [phone] Time spent in discharge: 20m For information about patient referrals and other discharge orders, please see Discharge Instructions or the Other Orders tab in Chart Review. This note is electronically signed by . --End of Report-- documented in this encounter Discharge Instructions * Discharge Instr - Other Orders* Andrew Leon RN - 01/18/2024 4:23 PM CDT General Information Discharging physician: Manjeet Jiang Discharge Disposition HOME Immunization There is no immunization history on file for this patient. There is documentation in the Immunization/Injection section and/or the MAR (NOT in the notes) thatthe patient: Pneumonia:did not meet the criteria to receive pneumococcal vaccine. Influenza:refused the influenza (seasonal flu) vaccine. Home Care Instructions HANDOUTS You have been given the following handouts. Please read them carefully: Valuables/Medications Patient and/or family verified that all valuables have been returned: Yes Patient and/or family verified that all valuables removed from room safe: N/A Danger Signs Call your clinic or seek medical help if you have any sudden change in your condition or if you have any of the following: chest pain difficulty breathing fever greater than 100.4 degrees F pain not relieved with usual methods shortness of breath drainage from wound, redness or streak(s) from wound, increasing soreness around wound, and fever MARIANA drain: Drainage becomes pus-like Redness or streak from site Increased pain Begin bleeding in large amounts Odor Tube does not hold suction Tube is plugged and you are unable to strip it open Incision: Drainage from wound Redness or streak(s) from wound Increased soreness around wound Community Resources NONE Contact Information [address] [place] [address] Main or [phone] [facility] Group: [phone] For questions about your discharge instructions call the nursing unit : [facility], Emergency & Urgently Needed Care: For emergencies call 911 and/or get medical help right away. If you are a [facility] member and have medical needs after clinic hours you may call the CareLine at [phone] or . When leaving your room at discharge, please stop at the nursing unit desk to check out. * Attachments The following attachments cannot be sent through Care Everywhere. * !Breast Implant: Removal and Replacement (Micronesian) * Surgical Drain Care (Micronesian) documented in this encounter Medications at Time of Discharge Medication Sig Dispensed Refills Start Date End Date anastrozole (ARIMIDEX) 1 MG tablet Take 1 Tablet (1 mg) by mouth daily. 04/19/2022 gabapentin (NEURONTIN) 300 MG capsule Take 3 Capsules (900 mg) by mouth daily at bedtime. 10/31/2023 HYDROcodone-acetamin ophen (NORCO) 5-325 MG tablet Take 1 Tablet by mouth every 6 hours as needed for Pain (severe pain). 10 Tablet 01/18/2024 Melatonin 10 MG TABS Take 1 Tablet (10 mg) by mouth daily at bedtime. metFORMIN XR (GLUCOPHAGE XR) 500 MG 24 hour release tablet Take 1 Tablet (500 mg) by mouth every evening with a meal. 10/19/2023 montelukast (SINGULAIR) 10 MG tablet TAKE 1 TABLET(10 MG) BY MOUTH EVERY EVENING 90 Tablet 3 09/30/2023 multivitamin with minerals tablet Take 1 Tablet by mouth daily. omeprazole (PRILOSEC) 20 MG capsule Take 1 Capsule (20 mg) by mouth. 07/14/2022 semaglutide (OZEMPIC, 1 MG/DOSE,) 4 MG/3ML injection Inject 1 mg subcutaneously once every week. VERZENIO 150 MG TABS Take 1 Tablet (150 mg) by mouth two times a day. 06/27/2022 fluconazole (DIFLUCAN) 150 MG tablet Take 1 Tablet (150 mg) by mouth once for 1 dose. 1 Tablet 01/19/2024 01/20/2024 documented as of this encounter Progress Notes * Manjeet Jiang PA-C - 01/18/2024 10:28 AM CDT [facility] Brief Operative Progress Note Surgery Date: 01/18/2024 Surgeons and Role: * Henrietta Mitchell MD - Primary * Manjeet Jiang PA-C - Assisting Visitor: Student - ROSLYN MIRANDA - Comments: JAREN CROWLEY Pre-op Diagnosis: * Personal history of malignant neoplasm of breast [Z85.3] Post-op Diagnosis: Post-Op Diagnosis Codes: * Personal history of malignant neoplasm of breast [Z85.3] Procedures with associated lateralities: Procedure(s) (LRB): removal of left breast implant - NOT REPLACING (Left) EBL: 15cc Specimens: ID Type Source Tests Collected by Time Destination 1 : LEFT BREAST CAPSULE Tissue Breast, left SURGICAL PATHOLOGY Henrietta Mitchell MD 01/18/2024 1009 Complications / Findings: none Manjeet Dyer. KHUSHBOO [facility] documented in this encounter H&P Notes * Courtney Mock MD - 01/18/2024 8:27 AM CDT [facility] Interval History and Physical Note The attached H&P has been reviewed. The patient was examined. Source Note - Provider, MD Kevin - 01/09/2024 12:00 AM CDT documented in this encounter Procedure Notes * Henrietta Mitchell MD - 01/18/2024 12:00 AM CDT NAME: KATALINA CHANCE CSN: [id number] OPERATIVE REPORT DATE OF SURGERY: 01/18/2024 : 1975 SURGEON: HENRIETTA MITCHELL MD PREOPERATIVE DIAGNOSES: 1.History of breast cancer. 2.Capsular contracture, left breast. 3.History of radiation. POSTOPERATIVE DIAGNOSES: 1.History of breast cancer. 2.Capsular contracture, left breast. 3.History of radiation. INDICATION FOR PROCEDURE: This is a 48-year-old female, who had breast reconstruction with an implant. Unfortunately, she has developed severe capsular contracture and the implant itself is quite painful. Due to the scarring around from the radiation, I have discussed with her removing the implant as well as the capsule. Risks and benefits have been reviewed. She understands, agrees, and wishes to proceed. JAVA PORTAL DEVELOPER: JAREN Garcia. Manjeet assisted in retraction, suturing to decrease and facilitate intraoperative time. There were no residents available. PROCEDURE PERFORMED: 1.Left breast capsulectomy. 2.Removal of intact left breast implant. DESCRIPTION OF PROCEDURE: The patient was identified, marked in the preoperative area, and taken tothe operating room. After an adequate level of anesthesia was obtained, the patient was prepped anddraped in sterile fashion. We started by opening the vertical limb of the incision. Dissection carried down. We identified the intact implant. It was removed in one piece. We then identified the capsule and the capsule was relatively friable. It was very adherent to the pectoralis muscle. We dissected down around the entire capsule. We remove 95 plus percent of the capsule. Once we felt we had removed as much as possible, we then irrigated out copiously with saline. Hemostasis was obtained. We placed a 15 round drain, closed the skin incision with 3-0 PDS deep tissue, 3-0 Monocryl deep dermaland a 4-0 subcuticular. Prineo, a soft dressing, and a bra were placed. The patient was awakened and taken to recovery room. ESTIMATED BLOOD LOSS: 10 mL. BLOOD PRODUCTS GIVEN: None. DRAINS AND PACKS: Correct. HENRIETTA MITCHELL MD CAH/AQS /[id number] documented in this encounter Plan of Treatment Not on file documented as of this encounter Procedures Procedure Name Priority Date/Time Associated Diagnosis [...] BLOOD POCT Routine 01/18/2024 8:54 AM CDT documented in this encounter Results * Glucose, Whole Blood POCT (01/18/2024 8:47 PM CDT) Glucose, Whole Blood 174 70 - 180 mg/dL 01/18/2024 8:49 PM CDT [facility] Performing Location [facility] 01/18/2024 8:49 PM CDT [facility] Blood 01/18/2024 8:47 PM CDT 01/18/2024 8:49 PM CDT Henrietta Mitchell MD LAB_1 [facility] [address] [place] [address], [facility] * Glucose, Whole Blood POCT (01/18/2024 4:56 PM CDT) Glucose, Whole Blood 117 70 - 180 mg/dL 01/18/2024 4:58 PM CDT [facility] Performing Location [facility] 01/18/2024 4:58 PM CDT [facility] Blood 01/18/2024 4:56 PM CDT 01/18/2024 4:58 PM CDT Henrietta Mitchell MD LAB_1 Performing Organization Address [facility] de Phone Number [facility] [address] * Glucose, Whole Blood POCT (01/18/2024 11:06 AM CDT) Glucose, Whole Blood 121 70 - 180 mg/dL 01/18/2024 11:07 AM CDT [facility] Performing Location [facility] 01/18/2024 11:07 AM CDT [facility] Blood 01/18/2024 11:0 6 AM CDT 01/18/2024 11:07 AM CDT Henrietta Mitchell MD LAB_1 Performing Organization Address [facility] de Phone Number [facility] [address] * Surgical Path (01/18/2024 10:09 AM CDT) Case Report Surgical Pathology ?Case: [id number] ? Authorizing Provider: ??Henrietta Mitchell MD ?Collected: ? 01/18/2024 1009 ? Ordering Location: ? [facility] Operating Room ?Received: ?01/18/2024 1037 ? Pathologist: ? Whit Dawn MD ? Specimen: ?Breast, left, LEFT BREAST CAPSULE ? 01/20/2024 11:52 AM [facility] FINAL DIAGNOSIS A. Breast, left, excision: Breast tissue with fibrous capsule Negative for atypia or malignancy 01/20/2024 11:52 AM [facility] Clinical Information Personal history of malignant neoplasm of breast 01/20/2024 11:52 AM [facility] Microscopic Description Microscopic examination is performed. 01/20/2024 11:52 AM [facility] Special Stains In block A1 and A2, cytokeratin AE1/AE3 immunostain is negative, CD68 highlights scattered macrophages. The stain controls have been reviewed and stain appropriately. 01/20/2024 11:52 AM [facility] Technical Information A portion of the technical component was performed at [facility], [address] [place] [address]. The professional interpretation was performed at [facility]. 01/20/2024 11:52 AM [facility] Gross Description A: The specimen is received [...] 0.2-0.4 cm. No masses are grossly identified. Interactive Graphic Designer sections are submitted in 2 cassettes. 01/20/2024 11:52 AM CDT [facility] Embedded Images 01/20/2024 11:52 AM CDT [facility] Tissue BREAST STRUCTURE / Unknown 01/18/2024 10:09 AM CDT 01/18/2024 10:37 AM CDT Henrietta Mitchell MD LAB PATHOLOGY Performing Organization Address City/[facility]/ZIP Co de Phone Number [address] [address], [facility] * Glucose, Whole Blood POCT (01/18/2024 8:54 AM CDT) Glucose, Whole Blood 101 70 - 180 mg/dL 01/18/2024 8:56 AM CDT [facility] Performing Location [facility] 01/18/2024 8:56 AM CDT [facility] Blood 01/18/2024 8:54 AM CDT 01/18/2024 8:56 AM CDT Henrietta Mitchell MD LAB_1 Performing Organization Address City/[facility]/ZIP Co de Phone Number [facility] [address] [place] [address], [facility] documented in this encounter Visit Diagnoses Diagnosis Personal history of malignant neoplasm of breast- Primary * Plan of Care - Lorna Vargas RN - 01/19/2024 10:37 AM CDT [facility] Discharge Note - Nursing Admission Date/Time: 01/18/2024 7:47 AM Attending MD: Henrietta Mitchell MD Patient discharged: to Home. Discharge Date: 01/19/2024 Discharge Time: 10:38 AM Patient accompanied by: spouse. Transported by: Wheelchair Valuables were taken home by patient: Yes Discharge instructions given and explained to patient: Yes Discharge Patient Education Plan completed, taught, and provided to patient/caregiver at discharge:Yes Discussed medication risks with patient Patient understands medications usage and side effects Patient understands diagnosis Action Plan for management of symptoms/side effects/complications requiring medical attention established and shared with patient/caregiver Was patient discharged on Warfarin? {(Do not delete line; Warfarin documentation is required) No Patients general condition on discharge: Stable All medical devices (telemetry/IV/etc) unless otherwise ordered, have been removed and stored: Yes --- End of Report --- * Plan of Care - Helena Edward RN - 01/19/2024 6:01 AM CDT [facility] Plan of Care Note (Nursing) Assessment: Patient is oriented x4. Pain has been a 3/10 in the left breast and has been controlled with PRN [place]. Patient's activity this shift SBA to the bathroom and around the unit. Heart rate is regular. Lungs are CTA. Has normoactive bowel sounds and is not passing flatus. Is tolerating a regular diet. Is voiding spontaneously. Patient has a dressing to the left breast, CDI. Pt denies dizziness/nausea. Vitals: BP 117/84 (BP Cuff Size: Regular - Long) Pulse 66 Temp 98.2 ??F (36.8 ??C) (Oral) Resp 16 SpO2 96% Plan: Continue to monitor and give medications as ordered. Anticipate discharge to home when able. * Plan of Care - Andrew Leon RN - 01/18/2024 8:25 PM CDT [facility]. Practitioner Notified Note Name of Practitioner notified: Manjeet Jiang Time of Practitioner notification: 2019 Reason: Patient update. Continuing to have intermittent nausea. Able to stand and june. Patient did not feel like she could walk to the bathroom so she was able to void into a BSC. Vitals are stableand weaned off oxygen. Patient is requesting for more nausea medication and pain medication. She reports that pain is tolerable on vicodin. She is tolerating oral intake. Response: Orders placed. Provider may not be able to round on her until noon, but she has dischargeorders in and she can be discharged to home in the morning. * Plan of Care - Andrew Leon RN - 01/18/2024 3:30 PM CDT Bedside report given. CPAP is on and patient politely defers her nursing assessment. She would liketo get sleep at this time. Plan will be to asesss patient at 1700 when meds are due or sooner if patient is awake. * Plan of Care - Dodie Lei RN - 01/18/2024 12:20 PM CDT [facility] Nursing Post-Op Note Admission Date/Time: 01/18/2024 7:47 AM Admitted to [facility] on 01/18/2024 at 1210 pm from PACU into room 244. Transported by: Litter/cart Medical devices present on return from O.R.: IV and MARIANA x1 Valuables/Belongings with patient upon arrival on unit: Dentures: none Glasses:No Hearing aid:No CPAP: Yes Jewelry: No General condition on return from O.R.: stable --- End of Report --- * Plan of Care - Isabel Aragon RN - 01/18/2024 11:45 AM CDT oil heater installer called and updated PA from surgery Apolinar Burroughs. Updated. [facility], updated and told to check in with Pa later today regarding possible d/c later depending on how pt is doing. [facility], Dr. Lei updated and aware. Vitals remain stable. oil heater installer obtained cpap mask from and will take tofloor with pt on transfer. Pt on 2LNC currently. Sleepy and needs reminders to take deep breaths attimes. Report called to [facility] documented in this encounter Admitting Diagnoses Diagnosis Personal history of malignant neoplasm of breast documented in this encounter Administered Medications Inactive Administered Medications - up to 3 most recent administrations Medication Order MAR Action Action Date Dose Rate Site ceFAZolin (ANCEF) 1 g in sodium chloride 0.9 % 50 mL IVPB ADS 1 g, Intravenous, Administer over 30 Minutes, Q8H (NON-STND), First dose (after last reorder) on Tue01/18/24 at 1730, For 2 doses, Start timing of antibiotics from time the Pre Op and/or Intra Op dose was given. Discontinue prophylactic antibiotics no later than 24 hours after incision closure., Post-op Started 01/19/2024 1:51 AM CDT 1 g Started 01/18/2024 5:10 PM CDT 1 g 100 mL/hr fentaNYL (SUBLIMAZE) injection 50-200 mcg 50-200 mcg, Intravenous, [id number], Pain, Maximum total dose = 200 mcg, Starting on Tue01/18/24 at 1024, Until Tue01/18/24 at 1231, For 4 doses, PACU (only) Given 01/18/2024 10:35 AM CDT 50 mcg HYDROcodone-acetaminophen (NORCO) 5-325 MG per tablet 1 Tablet 1 Tablet, Oral, Q4H PRN, Pain, Starting on Tue01/18/24 at 1039, Until Sarah 01/19/24 at 1239 Given 01/19/2024 5:43 AM CDT 1 Tablet Given 01/19/2024 1:44 AM CDT 1 Tablet Given 01/18/2024 9:44 PM CDT 1 Tablet ibuprofen (MOTRIN) tablet 400 mg 400 mg, Oral, Q8H PRN, Fever, Pain, Starting on Tue01/18/24 at 2052, Until Sarah 01/19/24 at 1239, Give with food or milk. insulin lispro (human) (HUMALOG; ADMELOG) injection pen 2-4 Units 2-4 Units, Subcutaneous, PRN BASED ON BLOOD SUGAR, Blood Sugar >, See admin instructions, Starting on Tue01/18/24 at 0830, Blood Sugar 151-199 mg/dL give 2 units Blood Sugar 200-250 mg/dL give 3 units Blood Sugar > 250 mg/dL give 4 units lactated ringers infusion Intravenous, at 25 mL/hr, CONTINUOUS, Starting on Tue01/18/24 at 1300, May discontinue when patient tolerating PO intake., Post-op Rate/Dose Verify 01/18/2024 3:30 PM CDT 50 mL/hr metFORMIN XR (GLUCOPHAGE XR) extended release tablet 500 mg 500 mg, Oral, EVENING CML, First dose on Tue01/18/24 at 1700, Until Discontinued, Tablet/Capsule should be swallowed whole. Given 01/18/2024 5:01 PM CDT 500 mg ondansetron (ZOFRAN) injection 4 mg 4 mg, Intravenous, ONCE PRN, Nausea, Vomiting, Starting on Tue01/18/24 at 1024, Until Tue01/18/24 at 1055, For 1 dose, Once PRN Nausea/Vomiting Post op anesthesia PACU only. Nurse to discontinue order when patient discharged from PACU. Antiemetics to be given in the following preferential sequence (unless allergic or has Parkinson's disease): 1. ondansetron 2. droperidol 3. prochlorperazine, PACU (only) Given 01/18/2024 10:55 AM CDT 4 mg ondansetron (ZOFRAN) injection 4 mg 4 mg, Intravenous, Q8H PRN, Nausea, Vomiting, Starting on Tue01/18/24 at 1232, Until Tue01/18/24 at 2052, This medication is the first choice for control of nausea/vomiting. If ineffective, causing adverse effects or patient preference, consider prochlorperazine., Post-op Given 01/18/2024 6:31 PM CDT 4 mg ondansetron (ZOFRAN) injection 8 mg 8 mg, Intravenous, Q8H PRN, Nausea, Vomiting, Starting on Tue01/18/24 at 2052, Until Tue01/19/24 at 1239, This medication is the first choice for control of nausea/vomiting. If ineffective, causing adverse effects or patient preference, consider prochlorperazine., Post-op pantoprazole DR (PROTONIX) tablet 40 mg 40 mg, Oral, DAILY AT 0600, First dose on Tue01/19/24 at 0600, Until Discontinued Given 01/19/2024 5:43 AM CDT 40 mg scopolamine (TRANSDERM-SCOP) 1 mg/72 hours 1 Patch 1 Patch, Transdermal, Q72H, First dose on Tue01/18/24 at 0900, Until Discontinued, Apply behind the ear. 1.5 mg patch delivers 1 mg scopolamine over 3 days. Patch Applied 01/18/2024 8:33 AM CDT 1 Patch Right Ear documented in this encounter Active and Recently Administered Medications Times are shown in CDT. Scheduled Medication Order 01/17/2024 01/18/2024 01/19/2024 ceFAZolin (ANCEF) 1 g in sodium chloride 0.9 % 50 mL IVPB ADS (COMPLETED) 1 g, Intravenous, Administer over 30 Minutes, Q8H (NON-STND), First dose (after last reorder) on Tue01/18/24 at 1730, For 2 doses, Start timing of antibiotics from time the Pre Op and/or Intra Op dose was given. Discontinue prophylactic antibiotics no later than 24 hours after incision closure., Post-op 1710 (Started - Provider: Andrew Leon RN)1740 (Infused - Provider: Andrew Leon RN) 0151 (Started - Provider: Helena Edward RN)0221 (Infused - Provider: Helena Edward RN) melatonin tablet 9 mg 9 mg, Oral, HS, First dose on Tue01/18/24 at 2200, Until Discontinued 2148 (Not Given - Provider: Andrew Leon RN - Reason: Patient/family refused) metFORMIN XR (GLUCOPHAGE XR) extended release tablet 500 mg 500 mg, Oral, EVENING CML, First dose on Tue01/18/24 at 1700, Until Discontinued, Tablet/Capsule should be swallowed whole. 1701 (Given - Provider: Andrew Leon RN) pantoprazole DR (PROTONIX) tablet 40 mg 40 mg, Oral, DAILY AT 0600, First dose on Tue01/19/24 at 0600, Until Discontinued 0543 (Given - Provid er: Helena Edward RN) scopolamine (TRANSDERM-SCOP) 1 mg/72 hours 1 Patch 1 Patch, Transdermal, Q72H, First dose on Tue01/18/24 at 0900, Until Discontinued, Apply behind the ear. 1.5 mg patch delivers 1 mg scopolamine over 3 days. 0833 (Patch Applied - Provider: Corin Walsh RN) Continuous Medication Order 01/17/2024 01/18/2024 01/19/2024 dextrose 5% and sodium chloride 0.45% with KCL 20 mEq/L infusion 1,000 mL, Intravenous, at 75 mL/hr, CONTINUOUS, Starting on Tue01/18/24 at 1300, Post-op 1457 (Held - Provider: Eun Lei RN - Reason: Other (Enter Reason in Comment Area) - Comment: pt diabetic and IV fluid shortage) lactated ringers infusion (CANCELED) 1,000 mL, Intravenous, at 25 mL/hr, CONTINUOUS, Starting on Tue01/18/24 at 0815, To be used preop UNLESS patient has renal failure, then use NaCl 0.9% IV., Pre-op 0921 (Started - Provider: Frida Jacques)1029 (Infused - Provider: Emma Lynn APRN, ELECTRONICS ENGINEERING PROFESSOR) lactated ringers infusion Intravenous, at 25 mL/hr, CONTINUOUS, Starting on Tue01/18/24 at 1300, May discontinue when patient tolerating PO intake., Post-op 1458 (Canceled Entry - Provider: Dodie Lei RN)1530 (Rate/Dose Verify - Provider: Andrew Leon RN)1810 (Stopped - Provider: Andrew Leon RN) PRN Medication Order 01/17/2024 01/18/2024 01/19/2024 aluminum-magnesium hydroxide-simethicone (MAALOX) 200-200-20 MG/5ML suspension 20 mL 20 mL, Oral, QID PRN, Upset Stomach, Starting on Tue01/18/24 at 1232, Until Sarah 01/19/24 at 1239, Shake well before administration, Post-op BUPivacaine 0.25% PF (2.5 mg/mL) (SENSORCAINE) injection (CANCELED) ONCE PRN, Starting on Tue01/18/24 at 1012, Until Tue01/18/24 at 1231, Intra-op 1012 (Given - Provider: Henrietta Mitchell MD) fentaNYL (SUBLIMAZE) injection 50-200 mcg (CANCELED) 50-200 mcg, Intravenous, L4IBTFLI, Pain, Maximum total dose = 200 mcg, Starting on Tue01/18/24 at 1024, Until Tue01/18/24 at 1231, For 4 doses, PACU (only) 1035 (Given - Provider: Isabel Aragon, MEGAN) HYDROcodone-acetaminophen (NORCO) 5-325 MG per tablet 1 Tablet 1 Tablet, Oral, Q4H PRN, Pain, Starting on Tue01/18/24 at 1039, Until Sarah 01/19/24 at 1239 1334 (Given - Provider: Dodie Lei RN)1710 (Given - Provider: Andrew Leon RN)2144 (Given - Provider: Andrew Leon RN) 0144 (Given - Provider: Helena Edward, MEGAN)0543 (Given - Provider: Helena Edward, MEGAN) ibuprofen (MOTRIN) tablet 400 mg 400 mg, Oral, Q8H PRN, Fever, Pain, Starting on Tue01/18/24 at 2052, Until Sarah 01/19/24 at 1239, Give with food or milk. insulin lispro (human) (HUMALOG; ADMELOG) injection pen 2-4 Units 2-4 Units, Subcutaneous, PRN BASED ON BLOOD SUGAR, Blood Sugar >, See admin instructions, Starting on Tue01/18/24 at 0830, Blood Sugar 151-199 mg/dL give 2 units Blood Sugar 200-250 mg/dL give 3 units Blood Sugar > 250 mg/dL give 4 units 2056 (Not Given - Provider: Andrew Leon RN - Reason: Patient/family refused) ondansetron (ZOFRAN) injection 4 mg (COMPLETED) 4 mg, Intravenous, ONCE PRN, Nausea, Vomiting, Starting on Tue01/18/24 at 1024, Until Tue01/18/24 at 1055, For 1 dose, Once PRN Nausea/Vomiting Post op anesthesia PACU only. Nurse to discontinue order when patient discharged from PACU. Antiemetics to be given in the following preferential sequence (unless allergic or has Parkinson's disease): 1. ondansetron 2. droperidol 3. prochlorperazine, PACU (only) 1055 (Given - Provider: Isabel Aragon, MEGAN) ondansetron (ZOFRAN) injection 4 mg (CANCELED) 4 mg, Intravenous, Q8H PRN, Nausea, Vomiting, Starting on Tue01/18/24 at 1232, Until Tue01/18/24 at 2053, This medication is the first choice for control of nausea/vomiting. If ineffective, causing adverse effects or patient preference, consider prochlorperazine., Post-op 183 (Given - Provider: Andrew Leon RN) ondansetron (ZOFRAN) injection 8 mg 8 mg, Intravenous, Q8H PRN, Nausea, Vomiting, Starting on Tue01/18/24 at 2052, Until Sarah 01/19/24 at 1239, This medication is the first choice for control of nausea/vomiting. If ineffective, causing adverse effects or patient preference, consider prochlorperazine., Post-op oxyCODONE-acetaminophen (PERCOCET) 5-325 MG per tablet 1-2 Tablet 1-2 Tablet, Oral, Q4H PRN, Pain, Starting on Tue01/18/24 at 1232, Until Sarah 01/19/24 at 1239, For 1 dose, Once PRN 1 tablet for moderate pain, 2 tablets for severe pain, Post-op sodium chloride for irrigation 0.9 % (CANCELED) ONCE PRN, Starting on Tue01/18/24 at 0949, Intra-op 0949 (Given - Provider: Henrietta Mitchell MD) sterile water for irrigation (CANCELED) ONCE PRN, Starting on Tue01/18/24 at 0945, Intra-op 0945 (Given - Provider: Henrietta Mitchell MD - Comment: BASIN) documented in this encounter Care Teams Phys Therapist Relationship Specialty Start Date End Date Danna Borja PA-C [address] [place] [address] PCP - General Physician Lead Caster 01/18/24 documented as of this encounter
--- OUTSIDE RECORDS SUMMARY | 2024-01-27 00:14 | XMS_ITS | Encounter Summary ---
Author Organization [employer] Address [address] [place] [address] Care Team Providers Care Insurance Account Representative Name Role Phone Danna Borja PA-C Primary Care Provider [phone] Reason for Visit * Auth/Cert Specialty Diagnoses / Procedures Referred By Alonso t Referred To Contact Diagnoses Personal history of malignant neoplasm of breast Procedures removal of left breast implant - NOT REPLACING Referral ID Status Reason Start Date Expiration Date Visits Re quested Visits Authorized [id number] 1 1 Encounter Details Date Type Department Care Team (Late st Contact Info) Description 01/18/2024 9:15 AM CDT - 01/18/2024 10:30 AM CDT Surgery Operating Room [address] [place] [address] Henrietta Mitchell MD [address] [place] [id number] removal of left breast implant - NOT REPLACING Social History Tobacco Use Types Packs/Day Years [...] Sign Reading Time Taken Comments Blood Pressure 119/81 01/18/2024 10:30 AM CDT Pulse 89 01/18/2024 10:30 AM CDT Temperature 36.2 ??C (97.1 ??F) 01/18/2024 10:30 AM C DT Respiratory Rate 12 01/18/2024 10:30 AM CDT Oxygen Saturation 100% 01/18/2024 10:30 AM CDT Inhaled Oxygen Concentration - - [...] Dyer. [facility] [phone] Time spent in discharge: 20m For information [...] around wound Community Resources NONE Contact Information [address] [address] Main or [phone] [facility]: [phone] For questions about your discharge instructions call the nursing unit : [facility], Emergency & Urgently Needed Care: For emergencies call 911 and/or get medical help right away. If you are a [facility] member and have medical needs after clinic hours you may call the CareLine at [phone] or . When leaving your room at discharge, please stop at the nursing unit desk to check out. * Attachments The following attachments cannot be sent through Care Everywhere. * !Breast Implant: Removal and Replacement (Dominican) * Surgical Drain Care (Dominican) documented in this encounter Medications at Time [...] The patient was examined. Source Note - ProviderKevin MD - 01/09/2024 12:00 AM CDT documented in this encounter Procedure Notes * Henrietta Mitchell MD - 01/18/2024 12:00 AM CDT NAME: KATALINA CHANCE CSN: [id number] OPERATIVE REPORT DATE OF SURGERY: 01/18/2024 : [...] understands, agrees, and wishes to proceed. JAVA J2EE SOFTWARE ENGINEER: JAREN Garcia. Manjeet assisted in retraction, suturing [...] AND PACKS: Correct. HENRIETTA MITCHELL MD CAH/AQS /[id number] documented in this encounter Plan of Treatment [...] LAB_1 [facility] [address] [place] [address], [facility] * Glucose, Whole Blood POCT (01/18/2024 4:56 PM CDT) Glucose, Whole Blood 117 70 - 180 mg/dL 01/18/2024 4:58 PM CDT [facility] Performing Location LVWCNSY 01/18/2024 4:58 PM CDT [facility] Blood 01/18/2024 4:56 PM CDT 01/18/2024 4:58 PM CDT Henrietta Mitchell MD LAB_1 Performing Organization Address [facility] de Phone Number [facility] [address] * Glucose, Whole Blood POCT (01/18/2024 11:06 AM CDT) Glucose, Whole Blood 121 70 - 180 mg/dL 01/18/2024 11:07 AM CDT [facility] Performing Location LVPACU 01/18/2024 11:07 AM CDT [facility] Blood 01/18/2024 11:0 6 AM CDT 01/18/2024 11:07 AM CDT Henrietta Mitchell MD LAB_1 Performing Organization Address [facility] de Phone Number [facility] [address] [place] [address] * Surgical Path (01/18/2024 10:09 AM CDT) Case Report Surgical Pathology ?Case: [id number] ? Authorizing Provider: ??Henrietta Mitchell MD ?Collected: ? 01/18/2024 1009 ? Ordering Location: ? [facility] Operating Room ?Received: ?01/18/2024 1037 ? Pathologist: ? Whit Dawn MD ? Specimen: ?Breast, left, LEFT BREAST CAPSULE ? 01/20/2024 11:52 AM [facility] FINAL DIAGNOSIS A. Breast, left, excision: Breast tissue with fibrous capsule Negative for atypia or malignancy 01/20/2024 11:52 AM [facility] Clinical Information Personal history of malignant neoplasm of breast 01/20/2024 11:52 AM [facility] Microscopic Description Microscopic examination is performed. 01/20/2024 11:52 AM [facility] Special Stains In block A1 and A2, cytokeratin AE1/AE3 immunostain is negative, CD68 highlights scattered macrophages. The stain controls have been reviewed and stain appropriately. 01/20/2024 11:52 AM [facility] Technical Information A portion of the technical component was performed at [facility], [address] [place] [address]. The professional interpretation was performed at [facility]. 01/20/2024 11:52 AM [facility] Gross Description A: The specimen [...] 0.2-0.4 cm. No masses are grossly identified. Elementary Special Education Teacher sections are submitted in 2 cassettes. 01/20/2024 11:52 AM [facility] Embedded Images 01/20/2024 11:52 AM CDT Tissue BREAST STRUCTURE / Unknown 01/18/2024 10:09 AM CDT 01/18/2024 10:37 AM CDT Henrietta Mitchell MD LAB PATHOLOGY Performing Organization Address City/[facility]/ZIP Co de Phone Number [address] [place] [address], [facility] * Glucose, Whole Blood POCT (01/18/2024 8:54 AM CDT) Glucose, Whole Blood 101 70 - 180 mg/dL 01/18/2024 8:56 AM CDT [facility] Performing Location LVSDS 01/18/2024 8:56 AM CDT [facility] Blood 01/18/2024 8:54 AM CDT 01/18/2024 8:56 AM CDT Henrietta Mitchell MD LAB_1 Performing Organization Address City/[facility]/ZIP Co de Phone Number [facility] [address] [place] [address], [facility] documented in this encounter Visit Diagnoses Diagnosis Personal history of malignant neoplasm of breast- Primary Personal history of malignant neoplasm of breast * Plan of Care - Lorna Vargas [...] breast and has been controlled with PRN [place]. Patient's activity this shift SBA to the [...] Leon RN - 01/18/2024 8:25 PM CDT [facility]. Practitioner Notified Note Name of Practitioner notified: [...] Lei RN - 01/18/2024 12:20 PM CDT [facility] Nursing Post-Op Note Admission Date/Time: 01/18/2024 7:47 AM Admitted to [facility] on 01/18/2024 at 1210 pm from PACU [...] Aragon RN - 01/18/2024 11:45 AM CDT presser all around called and updated PA from surgery Apolinar Burroughs. Updated. [facility], updated and told to check in with Pa later today regarding possible d/c later depending on how pt is doing. [facility] and aware. Vitals remain stable. presser all around obtained cpap mask from and will take tofloor with pt on transfer. Pt on 2LNC currently. Sleepy and needs reminders to take deep breaths attimes. Report called to [facility] documented in this encounter Admitting Diagnoses Diagnosis Personal history of malignant neoplasm of breast documented in this encounter Administered Medications Inactive Administered Medications - up to 3 most recent administrations Medication Order MAR Action Action Date Dose Rate Site BUPivacaine 0.25% PF (2.5 mg/mL) (SENSORCAINE) injection ONCE PRN, Starting on Tue01/18/24 at 1012, Until Tue01/18/24 at 1231, Intra-op Given 01/18/2024 10:12 AM CDT 14 mL Wound Site ceFAZolin (ANCEF) 1 g in sodium [...] (SUBLIMAZE) injection 50-200 mcg 50-200 mcg, Intravenous, Q5TWLHMM, Pain, Maximum total dose = 200 mcg, [...] Oral, DAILY AT 0600, First dose on Sarah 01/19/24 at 0600, Until Discontinued Given 01/19/2024 5:43 AM CDT 40 mg scopolamine (TRANSDERM-SCOP) 1 mg/72 hours 1 Patch 1 Patch, Transdermal, Q72H, First dose on Tue01/18/24 at 0900, Until Discontinued, Apply behind the ear. 1.5 mg patch delivers 1 mg scopolamine over 3 days. Patch Applied 01/18/2024 8:33 AM CDT 1 Patch Right Ear sodium chloride for irrigation 0.9 % ONCE PRN, Starting on Tue01/18/24 at 0949, Intra-op Given 01/18/2024 9:49 AM CDT 500 mL Wound Site sterile water for irrigation ONCE PRN, Starting on Tue01/18/24 at 0945, Intra-op Given 01/18/2024 9:45 AM CDT 1,000 mL documented in this encounter Active and Recently [...] days. 0833 (Patch Applied - Provider: Corin Walsh, MEGAN) Continuous Medication Order 01/17/2024 01/18/2024 01/19/2024 dextrose [...] Jacques)1029 (Infused - Provider: Emma Lynn APRN, SENIOR CLINICAL STUDY MANAGER) lactated ringers infusion Intravenous, at 25 mL/hr, CONTINUOUS, Starting on Tue01/18/24 at 1300, May discontinue when patient tolerating PO intake., Post-op 1458 (Canceled Entry - Provider: Dodie Lei, MEGAN)1530 (Rate/Dose Verify - Provider: Andrew Leon RN)1810 (Stopped - Provider: Andrew Leon RN) PRN Medication Order 01/17/2024 01/18/2024 01/19/2024 aluminum-magnesium hydroxide-simethicone (MAALOX) 200-200-20 MG/5ML suspension 20 mL 20 mL, Oral, QID PRN, Upset Stomach, Starting on Tue01/18/24 at 1232, Until Tue01/19/24 at 1239, Shake well before administration, Post-op BUPivacaine 0.25% PF (2.5 mg/mL) (SENSORCAINE) injection (CANCELED) ONCE PRN, Starting on Tue01/18/24 at 1012, Until Tue01/18/24 at 1231, Intra-op 1012 (Given - Provider: Henrietta Mitchell MD) fentaNYL (SUBLIMAZE) injection 50-200 mcg (CANCELED) 50-200 mcg, Intravenous, J8CCANNP, Pain, Maximum total dose = 200 mcg, Starting on Tue01/18/24 at 1024, Until Tue01/18/24 at 1231, For 4 doses, PACU (only) 1035 (Given - Provider: Isabel Aragon RN) HYDROcodone-acetaminophen (NORCO) 5-325 MG per tablet 1 Tablet 1 Tablet, Oral, Q4H PRN, Pain, Starting on Tue01/18/24 at 1039, Until Sarah 01/19/24 at 1239 1334 (Given - Provider: Dodie Lei RN)1710 (Given - Provider: Andrew Leon RN)2144 (Given - Provider: Andrew Leon RN) 0144 (Given - Provider: Helena Edward, MEGAN)0543 (Given - Provider: Helena Edward RN) ibuprofen (MOTRIN) tablet 400 mg 400 mg, [...] (only) 1055 (Given - Provider: Isabel Aragon, RN) ondansetron (ZOFRAN) injection 4 mg (CANCELED) 4 mg, Intravenous, Q8H PRN, Nausea, Vomiting, Starting on Tue01/18/24 at 1232, Until Tue01/18/24 at 205, This medication is the first choice for control of nausea/vomiting. If ineffective, causing adverse effects or patient preference, consider prochlorperazine., Post-op 1830 (Given - Provider: Andrew Leon, RN) ondansetron (ZOFRAN) injection 8 mg 8 [...] - Provider: Henrietta Mitchell MD - Comment: MONTY) documented in this encounter Care Teams Insurance Account Representative Relationship Specialty Start Date End Date Danna Borja PA-C [address] [place] [address] PCP - General Physician Magnet Maker 01/18/24 documented as of this encounter
--- OUTSIDE RECORDS SUMMARY | 2024-01-27 00:14 | XMS_ITS | Encounter Summary ---
Author Organization [employer] Address [address] [place] [address] Care Team Providers Care Insurance Agents Supervisor Name Role Phone Danna Borja PA-C Primary Care Provider [phone] Reason for Visit * Reason Comments Post-Op Problem FEVER Encounter Details Date Type Department Care Team (Late st Contact Info) Description 01/26/2024 Nurse Triage Careline [address] [place], [place] [id number] Unassigned, Provider [address] [place] [address] Post-Op Problem; FEVER Social History Tobacco Use Types Packs/Day Years [...] on file documented as of this encounter Nursing Notes * Nessa Olmedo RN - 01/26/2024 9:59 PM CDT Caller was transferred to a nurse. 9:59 PM Verified patient identity: Yes Situation/Background (brief explanation of current symptoms/situation): Patient reports she had reconstruction for a breast implant last week Tuesday. She has a drain in place which is putting out about 25 cc's a day. She started running a fever on Tuesday, she notified her provider who advised her to call if fever returns. Temperature at 8pm was 101.4 after she took Ibuprofen it was 99.9. orally. She has chills. No other symptoms. Reviewed with patient pertinent medical history (as it related to the call): Yes Reviewed with patient pertinent medications (as they relate to call): Yes Vicodin, Ibuprofen Reviewed with patient pertinent allergies (as they relate to call): Yes Reason for Disposition Fever > 100.4 F (38.0 C) Answer Assessment - Initial Assessment Questions 1. SYMPTOM: What's the main symptom you're concerned about? (e.g., pain, fever, vomiting) Fever 2. ONSET: When did the fever start? Today 3. SURGERY: What surgery did you have? Left breast surgery 4. DATE of SURGERY: When was the surgery? 01/18/24 5. ANESTHESIA: What type of anesthesia did you have? (e.g., general, spinal, epidural, local) General 6. DRAINS: Were any drains place in or around the wound? (e.g., Hemovac, Royce-Fernandez, [place]) 1 MARIANA drain 7. PAIN: Is there any pain? If Yes, ask: How bad is it? (Scale 1-10; or mild, moderate, severe) 07/19 8. FEVER: Do you have a fever? If Yes, ask: What is your temperature, how was it measured, and when did it start? Yes 9. VOMITING: Is there any vomiting? If Yes, ask: How many times? No 10. BLEEDING: Is there any bleeding? If Yes, ask: How much? and Where? No 11. OTHER SYMPTOMS: Do you have any other symptoms? (e.g., drainage from wound, painful urination, constipation) no Protocols used: Post-Op Symptoms and [id number] Advised patient/caller to call back CareLine if there are further questions or concerns or to be seen if situation becomes emergent. The CareLine is available 01/11. Nessa Costa RN Careline 10:15 PM 01/26/2024 * Lolis Putnam 01/26/2024 9:52 PM CDT Verified patient identity using three identifiers: Yes Caller's relationship to patient: Self, Do you have a provider/clinic where you are seen for this? PARDEEP/Madai/Mikey/Angel Are you calling about a /OPERATOR ENGINEER related concern? No Symptoms Describe the reason for call/symptoms (include location and duration if applicable): Patient had surgery on 01/18/24 and having sx of fever 101.4. Plan:Caller transferred directly to CareLine nurse. documented in this encounter Plan of Treatment Not on file documented as of this encounter Visit Diagnoses Not on filedocumented in this encounter Care Teams Insurance Agents Supervisor Relationship Specialty Start Date End Date Danna Borja PA-C [address] [place] [address] PCP - General Physician Regional Geodetic Advisor 01/18/24 documented as of this encounter
--- OUTSIDE RECORDS SUMMARY | 2024-01-27 00:14 | XMS_ITS | Encounter Summary ---
Author Organization [email or web address] Address [address] [place] [address] Care Team Providers Care Client Manager Large Law Name Role Phone Unavailable Primary Care Provider Unavailabl e Encounter Details Date Type Department Care Team (Latest Contact Info) Description 01/09/2024 Orders Only HIM DEPARTMENT Provider, [place] [address] Social History Tobacco Use Types Packs/Day Years [...] Procedure Name Priority Date/Time Associated Diagnosis Comments LABORATORY REPORT 01/09/2024 documented in this encounter Results * LABORATORY REPORT (01/09/2024) Interface Provider DUMMY/OTHER/AR documented in this encounter Visit Diagnoses Not on filedocumented in this encounter
--- OUTSIDE RECORDS SUMMARY | 2024-01-27 00:14 | XMS_ITS | Encounter Summary ---
Author Organization [email or web address] Address [address] [place] [address] Care Team Providers Care Utilization Management Rn Name Role Phone Danna Borja PA-C Primary Care Provider [phone] Reason for Visit * Reason Comments Follow-up, NOS Entered automaticall y based on patient selection [facility] Encounter Details Date Type Department Care Team (Late st Contact Info) Description 01/25/2024 8:00 AM CDT E-Visit [facility] [address], [address] [place] [address] Ruby Holland, STEM MAKER, LEGAL RECOVERY SPECIALIST [address] [place], [place] [id number] Chief Comp: Follow-up, NOS Social History Tobacco [...] as of this encounter Nursing Notes * Glory De Los Santos, RN - 01/25/2024 8:29 AM CDT Spoke with Katalina who is 7 days s/p capsulectomy and implant removal. She describes a 100* temp for about 5 hours yesterday that has slowly come down, increased pain at her drain insertion site. She denies any increased erythema or warmth to the area. Drainage is clear yellow-orange and output has remained consistent. She does tell freelance writer she was feeling good past several days and has not takenmuch Tylenol or Ibuprofen and has been more active. Spoke with STEM MAKER who recommended watchful waiting, scheduled Tylenol and Ibuprofen to stay ahead 9of the pain and to call back if she has increased redness, warmth, swelling or change in drainage. If she calls back with any change in symptoms can offer her Cefadroxil. Pt agrees with this plan and will call back as needed. She will call back when drain meets criteria. Glory De Los Santos RN documented in this encounter Plan of Treatment Not on file documented as of this encounter Visit Diagnoses Not on filedocumented in this encounter Care Teams Utilization Management Rn Relationship Specialty Start Date End Date Danna Borja PA-C [address] [place] [address] PCP - General Physician Biscuit Maker 01/18/24 documented as of this encounter
[2024-01-27 00:15] LABS: Anion Gap 18 mEq/L (7-15); Blood Urea Nitrogen* 20 mg/dL (5-24); Carbon Dioxide* 22 mmol/L (20-32); Chloride* 100 mmol/L (96-114); Creatinine* 1.1 mg/dL (0.5-1.5); Est. Creatinine Clearance* 53.42; Estimated Glomerular Filt Rate 62 ml/min; Glucose* 100 mg/dL (60-115); Potassium* 3.8 mmol/L (3.6-5.1); Sodium* 140 mmol/L (135-149)
--- OUTSIDE RECORDS SUMMARY | 2024-01-27 00:15 | XMS_ITS | Encounter Summary ---
Author Organization [employer] Address [address] [place] [address] Care Team Providers Care Regional Sales Engineer Name Role Phone Unavailable Primary Care Provider Unavailabl e Reason for Visit * Reason Comments Refill Encounter Details Date Type Department Care Team (Late st Contact Info) Description 09/30/2023 Refill [facility] [address], [address] [place] [address] Henrietta Mitchell MD [address] [place] [phone] Refill Social History Tobacco Use Types Packs/Day Years [...] as of this encounter Nursing Notes * Tamika Watkins RN - 09/30/2023 8:27 AM CDT Still need medication? Per order, to d/c after 365 doses. Was ordered 10/07/22. Tamika Coyle RN documented in this encounter Plan of Treatment Not on file documented as of this encounter Visit Diagnoses Not on filedocumented in this encounter
--- OUTSIDE RECORDS SUMMARY | 2024-01-27 00:15 | XMS_ITS | Encounter Summary ---
Author Organization [employer] Address [address], [place] [address] Care Team Providers Care Partridge Farmer Name Role Phone Unavailable Primary Care Provider Unavailabl e Reason for Referral * Procedure/Equipment (Routine) - New Request Specialty Diagnoses / Procedures Referred By Alonso t Referred To Contact Diagnoses Personal history of malignant neoplasm of breast Procedures Case Request OR - Plastic/Hand Surgery: removal of left breast implant Henrietta Mahan MD [address] [place] [id number] Referral ID Status Reason Start Date Expiration Date V isits Requested Visits Authorized [id number] New Request 01/03/2024 04/03/2025 1 1 Reason for Visit * Reason Comments ROUTINE, FOLLOW-UP Talk about surgery E xchange Implant Encounter Details Date Type Department Care Team (Late st Contact Info) Description 01/02/2024 2:30 PM CDT Office Visit [facility] [address], [address] [place] [address] Henrietta Mahan MD [address] [place] [address] Personal history of malignant neoplasm of breast (Primary Dx) Social History Tobacco Use Types [...] Sign Reading Time Taken Comments Blood Pressure - - Pulse - - Temperature - - Respiratory Rate - - Oxygen Saturation - - Inhaled Oxygen Concentration - - Weight 118.6 kg (261 lb 8 oz) 01/02/2024 2:42 PM CDT Height 162.6 cm (5' 4) 01/02/2024 2:42 PM CDT Body Mass Index 44.89 01/02/2024 2:42 PM CDT documented in this encounter Patient Instructions * Patient Instructions* Mary Kay Palmer MA - 01/02/2024 2:30 PM CDT With any procedure there is a small but inherent risk of acquiring infection including, but not limited to, the novel coronavirus (COVID-19). Please be aware that there is a potential for your procedure or surgery to be postponed, or possibly canceled, if you should test positive for COVID-19. There is also a potential for postponement of your procedure if there is a significant reduction in resources required to safely perform your procedure. Important information to know before your surgery You will be scheduled for a Implant removal. You will receive a phone call from your surgeon's office regarding the date, and location of your surgery. Please allow up to 2-4 weeks to be contacted. For certain types of surgeries, such as workers compensation, this may take longer. If you have FMLA or disability forms, please allow up to two weeks to be completed. Once you know your surgery date, please contact your primary care physician to schedule a preoperative history and physical. This must be done within 30 days of your surgery. This will ensure that you are medically ready to have your surgery and anesthesia. If your Primary Physician is located outside of our [facility] system, please have your PrimaryPhysician fax your Pre-operative History and Physical form to our [facility] as soon as possible. [facility] Fax#: [phone] [facility] [place] [address] - [facility] Fax#: [phone] The Same Day Surgery Nurses will call you 1-3 days prior to surgery to inform you what time you should arrive for your surgery. If they do not reach you, [facility] at [address] [place] [address] on the 4th floor. We prefer that you do not take any ibuprofen, aspirin, naprosyn type products, or vitamin E seven days before your surgery. If you are taking aspirin, Coumadin, Plavix or other blood thinners for medical reasons, please consult with your prescribing physician to ensure that it is safe for you to stop. Do not take any herbal medications two weeks before your surgery. Young children and adults should not smoke, eat, or drink after midnight the night before surgery. This includes chewing gum. If you eat or drink anything after midnight, your surgery will be canceled. For infants under the age of 6 months, consult with the Surgery Nurse. No use of hair products such as hair spray, gel, mousse, etc, on the day of surgery. Please remove all jewelry including piercings. If you are having an outpatient procedure, you will not be able to drive yourself home. Please arrange for transportation and arrange for help at home the day of the surgery. If you are staying in the hospital, please arrange for transportation for the day you will be discharged. Contact Information for Post Operative Care Plastic and Hand Surgery Clinic [facility]), between the hours of 8am-5pm. Plastic Surgery Clinic [facility]), between the hours of 8am-5pm. After hours call [phone] and ask for the on-call Plastic and Hand Surgery resident or call the [facility] Careline at [phone]. To see a drain care instructions video, copy and paste the following web address: [email or web address]/[email or web address] Or click on this link: Drain Care Instructions Washing your skin before surgery It???s important to prepare your skin for surgery to reduce the risk of a surgical wound infection. Please take a shower the night before and the morning of your surgery. Please follow these steps during your showers: The night before your surgery: Take a shower, washing your body as usual. Apply plenty of Hibiclens*, a special commercial or institutional cleaner, to a clean, wet washcloth. Wash from your neck to your feet. Be sure to rinse off all the soap. Avoid getting Hibiclens* in your eyes, nose, ears, or mouth. If Hibiclens* is not available, use an antibacterial soap such as Dial instead. Apply plenty of Hibiclens* to a wet washcloth. Gently lather the area of your body where you will have the surgery for 5 minutes. Do not scrub your skin with a brush. Do not shave any hair from your body. Wash your hair with your usual shampoo. You can do this either in the evening or in the morning. Dry your body with a newly washed towel. Wear newly washed clothing and sleep in newly washed bedding. The morning of your surgery: Take another shower following the steps above. Dry your body with a newly washed towel. Do not apply deodorant, lotions, or creams. Wear newly washed clothing. *Hibiclens is Chlorhexidine, an antiseptic that you rub on your skin. It destroys germs on the skin. It is used before surgery to reduce the risk of infection. Before using it, tell your doctor if you have any other medical conditions, especially skin problems or allergies, or if you are or nursing. Department of Plastic and Hand Surgery If you have any questions, please call [phone] PAIN MEDICATION POLICY The Department of Plastic and Hand Surgery recognizes that appropriate pain management is an important part of your surgical and recovery process. It is, therefore, important that you are aware of our policies regarding dispensing prescriptive (narcotic) pain medications. This department does not prescribe narcotic pain medication in anticipation of surgery or for most non-surgical conditions. Your primary care physician should manage your pain medication needs until surgery. Following surgery, you will be discharged with an appropriate prescription for pain medication depending on the severity of your surgery or injury. This prescription should last until your fir st postoperative appointment. Pain medication must be taken as prescribed. Patients should not takemore than the prescribed amount of medication without consulting the nurse practitioner, physician email marketing assistant or physician of [facility] Plastic and Hand Surgery. The amount of narcotic pain medication prescribed is related to your surgical procedure or injury and is only one part of your pain management program. Other important parts of pain control include nonsteroidal anti-inflammatory agents (NSAIDS: ibuprofen, Naprosyn, Celebrex, aspirin), ice, elevation, and rest. Your ability to use NSAIDS may be altered depending on other health conditions and should be discussed with your surgeon. Relaxation techniques such as deep breathing and visualization have been shown to significantly improve pain. A handout is available in our office explaining how to do relaxation techniques. Our Plastic Surgeons will manage your postoperative pain for a period of one to six weeks followingyour surgery depending on the type of the procedure done. If you have a history of chronic pain, consultation with the pain clinic, physical therapist, or pain psychologist may be considered. If you have been receiving narcotic pain medication from another physician prior to your surgery or injury, you will need to return to that physician for further medical management. REFILL Policy for Prescriptions Pain management will be addressed during your physician visit. Should you need a refill between office visits, you will need to allow twenty-four hours for this to occur. Please call during clinic hours only and before noon on Fridays. We do not refill prescriptions over the weekend. Under no circumstances will your prescription be refilled on a walk in basis in the clinic or during weekend hours. Additionally, medications are the patient???s responsibility - we will not replace lost or stolen prescriptions or medications. RISKS of Narcotic Medications We are concerned about your overall health and the potentially negative effects of narcotic medications on it. In addition to lack of effectiveness for some types of pain, the side effects of narcotics include nausea, constipation, upset stomach, sexual dysfunction, depression, fatigue, increased sensitivity to pain, addition, and drug tolerance. Extended Recovery Patient Information What is extended recovery? Extended recovery is ordered by your doctor when the doctor thinks you need more time to safely recover. This recovery may be from an outpatient surgery or a radiology procedure. Your doctor expects that you will need more than 4-6 hours. When would I need extended recovery? The most common reasons for an extended recovery include: Not being able to urinate. Not being able to keep down solid foods or liquids. You need an IV (giving you fluids into a vein). Uncontrolled pain. Unexpected surgical bleeding. Abnormal vital signs such as blood pressure or heart rate. Not being able to safely move around. Cardiac or respiratory monitoring. (Keeping track of your heart and breathing). Your doctor will monitor your recovery and determine a plan of care. Department of Plastic and Hand Surgery documented in this encounter Progress Notes * Henrietta Mahan MD - 01/02/2024 2:30 PM CDTAddended by: HENRIETTA MAHAN on: 01/03/2024 10:48 AM Modules accepted: Orders * Henrietta Mahan MD - 01/02/2024 2:30 PM CDT 48-year-old female comes in after having left breast reconstruction with a implant. She is struggling for her changes from radiation are making the left chest wall tightened painful. Has started on Ozempic and is down 25 lb Exam Grade 3 4 cap kind of the left chest breast area. Has improved shoulder motion but painful to the touch. Impression History of breast cancer Status post radiation Capsular contracture Plan Removal of left breast implant We will need a drain She had struggles and needed an overnight stay after her last surgery. We also discussed that in the future if she changes her mind we could consider some form of an autologous reconstruction but I would not do any of those at this point in time. documented in this encounter Nursing Notes * Mary Kay Palmer MA - 01/02/2024 2:30 PM CDT Katalina Tucker [phone] -female - Telephone Information: Work Phone Not on file. -Where can patient be contacted during the day? [phone] [facility] -H&P Location: [facility] Date: Time: -Allergies: Latex: no Tape: no is allergic to codeine. -Health Issues: See Epic Patient Active Problem List Diagnosis Personal history of malignant neoplasm of breast ACP (advance care planning) Breast cancer ([facility]C) Chemotherapy-induced neutropenia ([facility]) Hot flashes due to menopause Insomnia, unspecified Malignant neoplasm of overlapping sites of left breast in female, estrogen receptor positive ([facility]C) New onset type 2 diabetes mellitus ([facility]C) Other acne Port or reservoir infection Radiation dermatitis Sepsis ([facility]C) -Estimated body mass index is 49.03 kg/m?? as calculated from the following: Height as of 07/21/22: 5' 3.25 (1.607 m). Weight as of 07/21/22: 279 lb (126.6 kg). -Diabetic: Yes Controlled -Sleep Apnea: Yes: CPAP -Pacemaker: No -Active TB: No -Blood Thinners: No -Prosthetic Device: no -Any Implantable Devices: YES, Left Breast Implants -Has implantable lead system (AICD- automatic implantable cardioverter- defibrillator): no -Cardiac Stent Placed < 1 year: No -Central nervous system/neuromuscular disease: No -Coagulation disorder (Factor V deficiency, Von Willebrand's): No -Difficulty with anesthesia (excluding N/V): Yes, unable to wake up -Emphysema/COPD: No -Heart blocks/uncontrolled hypertension/valvular disease: No -Malignant Hyperthermia History: No -Malignant Hyperthermia History in Family (specify): No -WA/CVA within last 6 months: No - at time of surgery: No -Severe pulmonary disease (home oxygen included): No -Unstable Angina history: No -Vented: No -Does patient require specialized care or equipment: no -PreOp Educated: Yes Initials: DB Date: 01/02/2024 documented in this encounter Plan of Treatment Not on file documented as of this encounter Visit Diagnoses Diagnosis Personal history of malignant neoplasm of breast- Primary documented in this encounter
[2024-01-27 01:08] VITALS: PULSE 93; O2SAT 95
[2024-01-27 01:10] VITALS: BP 134/86; PULSE 94; O2SAT 97
[2024-01-27 01:15] VITALS: PULSE 83; O2SAT 98
[2024-01-27 01:22] VITALS: BP 134/86; PULSE 91; RESP 16; TEMP 36.9; O2SAT 96
[2024-01-27 01:23] VITALS: BP 134/86; PULSE 91; RESP 16; TEMP 36.9
== END 2024-01-27 01:24 | disposition home or self-care (01) ==
PROVIDERS: Student in an Organized Health Care Education/Training Program; Emergency Provider Internal Medicine
DX: R50.82 Postprocedural fever (principal)
CPT/HCPCS: 36415; 71260; 80048; 81001; 82565; 83605; 84484; 85025; 87040; 87631; 93005; 94761; 99283; 99284; 99285; Q9967